=== PATIENT | female | born 1945 | race Caucasian/White ===

== ENCOUNTER → 2016-08-22 | Outpatient (CLI) | payer MEDICARE ==
--- NOTE | 2016-08-22 12:33 | KCIC ---
Bilateral digital screening mammograms with CAD: HISTORY Routine screening. COMPARISON New baseline. Previous films no longer available for comparison. FINDINGS Breast density category A. The skin and nipples show no abnormalities. No abnormal lymph nodes are seen in the axilla. The breast parenchyma is predominately fatty. There are nodular lesions in the 12:30 position anteriorly in the left breast measuring 9.6 millimeters in size and a 2nd lesion in the 2 o'clock B position of the left breast measuring 3.6 millimeters in size. There are nodular lesions in the right breast at the 5 o'clock position anteriorly measuring 3.9 millimeters in size and in the 7 o'clock position anteriorly in the right breast measuring 1.1 centimeter in size. There are no suspicious calcifications. IMPRESSION Nodular densities bilaterally. Recommend further evaluation with ultrasound. This study was interpreted with the benefit of Computerized Aided Detection (CAD). Mammography is not 100% sensitive in detecting breast cancer. Therefore, a self breast exam and a clinical breast exam are very important. A negative mammogram does not negate a clinically suspicious finding and should not result in a delay in biopsying a clinically suspicious abnormality. BI-RADS category 0: Incomplete. Ultrasound followup is recommended. This patient's information has been entered into a reminder system for the patient to be notified with the results of this examination and a target date for her next mammograms. Electronically signed by: Lauren Leon MD (Aug 22, 2016 12:31:38)
== END | disposition home or self-care (01) ==
LOC: KCIC MAMMO 11:09
PROVIDERS: ATTEND Family Medicine
DX: Z12.31 Encounter for screening mammogram for malignant neoplasm of breast (principal)
CPT/HCPCS: 77052; G0202; 77067

== ENCOUNTER → 2016-08-29 | Outpatient (CLI) | payer MEDICARE, OTHER ==
--- NOTE | 2016-08-29 14:12 | RAD ---
Indication possible abnormality seen on screening. Note is made of the screening bilateral mammogram one week earlier and the recommendation for ultrasound of both breasts in the areas of concern in the left breast at approximately the 12:30 and 2:00 positions were imaged. No abnormality is seen. Follow-up mammography of the left breast in 6 months is suggested to document stability. In the right breast at approximately the 5:00 position no abnormality is seen. There is, however, a slightly hypoechoic vascular mass at the 8:00 position of the breast compatible with the mammographic density. It is indeterminate and ultrasound-guided biopsy is recommended. The recommendation for biopsy of the 8:00 lesion in the right breast was to be communicated by the technologist performing the examination to the patient. IMPRESSION: Suspect abnormality in the periareolar position of the right breast at approximately the 8:00 position. Ultrasound-guided biopsy recommended. Follow-up mammography of the left breast in 6 months advised. Right breast BI-RADS 4. Suspect finding. Biopsy recommended. Left breast BI-RADS 3. Probably benign. Six-month follow-up
== END | disposition home or self-care (01) ==
LOC: KCIC US 12:54
PROVIDERS: ATTEND Family Medicine
DX: R92.8 Other abnormal and inconclusive findings on diagnostic imaging of breast (principal)
CPT/HCPCS: 76641

== ENCOUNTER 2018-12-03 15:37 | Inpatient (IN) | payer MEDICARE, OTHER ==
[~2018-12-03] VITALS: Ht 177.8 cm; Wt 102.1 kg
[2018-12-03] MEDS ORDERED: fentaNYL PF VIAL 100 MCG/2 ML VIAL IM ONE (16:00)
--- NOTE | 2018-12-03 16:43 | RAD ---
HIP RIGHT 1 VIEW WITH PELVIS Clinical Indication: PT STATES SHE FELL AND LANDED ON HIP,UNABLE TO MOVE LEG. Comparison: None. Findings: There is acute traumatic right subcapital femoral neck fracture with overriding of fracture fragments and varus deformity. There is no dislocation. On single view the left hip joint is intact. No acute pelvic fracture is identified. There are several phleboliths in the pelvis. There is degenerative endplate spurring in the lower lumbar spine. Crosstable lateral views are nondiagnostic due to lack of penetration. IMPRESSION: Acute traumatic right subcapital femoral neck fracture. Electronically signed by: Mando Del Valle MD (12/03/2018 4:40 PM) [id number]
[2018-12-03 17:57] LABS: BILIRUBIN,URINE NEGATIVE (NEG); CLARITY,URINE CLEAR; COLOR,URINE YELLOW; NITRITE,URINE NEGATIVE (NEG); PH,URINE 7.5; PROTEIN,URINE NEGATIVE (NEG-TRACE); UROBILINOGEN,URINE 0.2 mg/dL (0.2 mg/dL)
[2018-12-03 18:00] LABS: BASO % 0 % (0-3); EOS # 0.1 x10^3/uL (0.0-0.7); EOS % 1 % (0-3); HEMATOCRIT 42.9 % (36.0-47.0); LYMPH # 0.8 x10^3/uL (1.0-4.8); LYMPH % 8 % (24-48); MEAN CORPUSCULAR HEMOGLOBIN 29 pg (25-35); MEAN CORPUSCULAR HGB CONC 33 g/dL (31-37); MEAN CORPUSCULAR VOLUME 88 fL (79-100); MONO # 0.7 x10^3/uL (0.0-1.1); MONO % 7 % (0-9); NEUT # 8.6 x10^3uL (1.8-7.7); NEUT % 83 % (31-73); PLATELET COUNT 248 x10^3/uL (140-400); RED CELL DISTRIBUTION WIDTH 14.5 % (11.5-14.5); WHITE BLOOD COUNT 10.3 x10^3/uL (4.0-11.0)
[2018-12-03 18:06] LABS: BACTERIA,URINE 0 /HPF (0-FEW); RBC,URINE 0 /HPF (0-2); WBC,URINE 0 /HPF (0-4)
[2018-12-03 18:08] LABS: CALCIUM 9.4 mg/dL (8.5-10.1); GFR 54.2
--- NOTE | 2018-12-03 18:09 | PHYS DOC ---
Adult General Chief Complaint Chief Complaint: MECHANICAL FALL HPI HPI Patient is a 73 year old female with history of osteopenia presents to the ED today complaining of mild right lateral hip pain that began after she fell down in her garage steps. She states she fell down 2 steps. Patient denies any loss of consciousness. She states she is unable to bear weight on the right lower extremity. PCP Dr. Maurer (OLINDA SERRATO APRN) Review of Systems Review of Systems Constitutional: Denies fever or chills [] Eyes: Denies change in visual acuity, redness, or eye pain [] HENT: Denies nasal congestion or sore throat [] Respiratory: Denies cough or shortness of breath [] Cardiovascular: No additional information not addressed in HPI [] GI: Denies abdominal pain, nausea, vomiting, bloody stools or diarrhea [] : Denies dysuria or hematuria [] Musculoskeletal: Reports right hip pain Integument: Denies rash or skin lesions [] Neurologic: Denies headache, focal weakness or sensory changes [] All other systems were reviewed and found to be within normal limits, except as documented in this note. (OLINDA SERRATO APRN) Current Medications Current Medications Current Medications Medications (Trade) Dose Ordered Sig/Jaswinder Start Time Stop Time Status Last Admin Dose Admin Fentanyl Citrate (Fentanyl 2ml Vial) 50 mcg 1X ONCE 12/03/18 16:00 12/03/18 16:02 DC 12/03/18 17:28 50 MCG (ABDIRIZAK WISE MD) Allergies Allergies Allergies Coded Allergies Type Severity Reaction Last Updated Verified No Known Drug Allergies 12/03/18 No (ABDIRIZAK WISE MD) Physical Exam Physical Exam Constitutional: Well developed, well nourished, no acute distress, non-toxic appearance. [] HENT: Normocephalic, atraumatic, bilateral external ears normal, oropharynx moist, no oral exudates, nose normal. [] Eyes: PERRLA, EOMI, conjunctiva normal, no discharge. [] Neck: Normal range of motion, no tenderness, supple, no stridor. [] Cardiovascular:Heart rate regular rhythm, no murmur [] Lungs & Thorax: Bilateral breath sounds clear to auscultation [] Abdomen: Bowel sounds normal, soft, no tenderness, no masses, no pulsatile masses. [] Skin: Warm, dry, no erythema, no rash. [] Back: No tenderness, no CVA tenderness. [] Extremities: Right lower extremity appears shortened on the left. Tenderness on palpation of the right lateral hip. Patient unable to tolerate range of motion to the right hip. Full range of motion to the left hip. +2 right pedal pulse. Cap refill less than 2 seconds the right toes. Sensation intact to the right lower extremity. Neurologic: Alert and oriented X 3, normal motor function, normal sensory func tion, no focal deficits noted. [] Psychologic: Affect normal, judgement normal, mood normal. [] (OLINDA SERRATO APRN) Current Patient Data Vital Signs Vital Signs Date Time Temp Pulse Resp B/P (MAP) Pulse Ox O2 Delivery O2 Flow Rate FiO2 12/03/18 18:16 74 95 12/03/18 17:28 20 Room Air 12/03/18 15:37 97.6 146/63 (90) 97.6 (ABDIRIZAK WISE MD) Lab Values Laboratory Tests Test 12/03/18 17:18 12/03/18 17:36 White Blood Count 10.3 x10^3/uL (4.0-11.0) Red Blood Count 4.90 x10^6/uL (3.50-5.40) Hemoglobin 14.0 g/dL (12.0-15.5) Hematocrit 42.9 % (36.0-47.0) Mean Corpuscular Volume 88 fL (79-100) Mean Corpuscular Hemoglobin 29 pg (25-35) Mean Corpuscular Hemoglobin Concent 33 g/dL (31-37) Red Cell Distribution Width 14.5 % (11.5-14.5) Platelet Count 248 x10^3/uL (140-400) Neutrophils (%) (Auto) 83 % (31-73) H Lymphocytes (%) (Auto) 8 % (24-48) L Monocytes (%) (Auto) 7 % (0-9) Eosinophils (%) (Auto) 1 % (0-3) Basophils (%) (Auto) 0 % (0-3) Neutrophils # (Auto) 8.6 x10^3uL (1.8-7.7) H Lymphocytes # (Auto) 0.8 x10^3/uL (1.0-4.8) L Monocytes # (Auto) 0.7 x10^3/uL (0.0-1.1) Eosinophils # (Auto) 0.1 x10^3/uL (0.0-0.7) Basophils # (Auto) 0.0 x10^3/uL (0.0-0.2) Prothrombin Time 12.3 SEC (11.7-14.0) Prothrombin Time INR 0.9 (0.8-1.1) PTT 29 SEC (24-38) Sodium Level 143 mmol/L (136-145) Potassium Level 4.0 mmol/L (3.5-5.1) Chloride Level 105 mmol/L (98-107) Carbon Dioxide Level 28 mmol/L (21-32) Anion Gap 10 (6-14) Blood Urea Nitrogen 20 mg/dL (7-20) Creatinine 1.0 mg/dL (0.6-1.0) Estimated GFR (Cockcroft-Gault) 54.2 BUN/Creatinine Ratio 20 (6-20) Glucose Level 110 mg/dL (70-99) H Calcium Level 9.4 mg/dL (8.5-10.1) Total Bilirubin 0.4 mg/dL (0.2-1.0) Aspartate Amino Transferase (AST) 22 U/L (15-37) Alanine Aminotransferase (ALT) 27 U/L (14-59) Alkaline Phosphatase 76 U/L (46-116) Total Protein 7.2 g/dL (6.4-8.2) Albumin 3.3 g/dL (3.4-5.0) L Albumin/Globulin Ratio 0.8 (1.0-1.7) L Urine Collection Type U cath Urine Color Yellow Urine Clarity Clear Urine pH 7.5 Urine Specific [place] <=1.005 Urine Protein Negative mg/dL (NEG-TRACE) Urine Glucose (UA) Negative mg/dL (NEG) Urine Ketones (Stick) Negative mg/dL (NEG) Urine Blood Negative (NEG) Urine Nitrite Negative (NEG) Urine Bilirubin Negative (NEG) Urine Urobilinogen Dipstick 0.2 mg/dL (0.2 mg/dL) Urine Leukocyte Esterase Negative (NEG) Urine RBC 0 /HPF (0-2) Urine WBC 0 /HPF (0-4) Urine Bacteria 0 /HPF (0-FEW) Laboratory Tests 12/03/18 17:18 Laboratory Tests 12/03/18 17:18 (ABDIRIZAK WISE MD) EKG EKG [] (OLINDA SERRATO APRN) Radiology/Procedures Radiology/Procedures []PROCEDURE: HIP RIGHT 1 VIEW WITH PELVIS HIP RIGHT 1 VIEW WITH PELVIS Clinical Indication: PT STATES SHE FELL AND LANDED ON HIP,UNABLE TO MOVE LEG. Comparison: None. Findings: There is acute traumatic right subcapital femoral neck fracture with overriding of fracture fragments and varus deformity. There is no dislocation. On single view the left hip joint is intact. No acute pelvic fracture is identified. There are several phleboliths in the pelvis. There is degenerative endplate spurring in the lower lumbar spine. Crosstable lateral views are nondiagnostic due to lack of penetration. IMPRESSION: Acute traumatic right subcapital femoral neck fracture. Electronically signed by: Mando Del Valle MD (12/03/2018 4:40 PM) [id number] DICTATED and SIGNED BY: MANDO DEL VALLE MD DATE: 12/03/18 1640 (OLINDA SERRATO APRN) Course & Med Decision Making Course & Med Decision Making Pertinent Labs and Imaging studies reviewed. (See chart for details) This is a 73-year-old female patient presenting to the ED today with right hip pain status post falling today. Right hip x-rays interpreted by radiologist were noted for-acute traumatic right subcapital femoral neck fracture. 17:[address] Browne who will f/u with patient for ortho 18:[address] Monroe who accepted patient for admission. (OLINDA SERRATO APRN) Course & Med Decision Making Staff Physician Addendum: I was working in the ER during the course of this patient's visit. I was available for consultation as needed, but I was not directly involved in the care of this patient. (ABDIRIZAK WISE MD) Dragon Disclaimer Dragon Disclaimer This electronic medical record was generated, in whole or in part, using a voice recognition dictation system. (OLINDA SERRATO APRN) Departure Departure Impression: Primary Impression: Fx femoral neck Additional Impression: Fall from standing Disposition: ADMITTED INPATIENT Condition: STABLE Referrals: YVAN MAURER MD (PCP) Problem Qualifiers Primary Impression: Fx femoral neck Encounter type: initial encounter Fracture type: closed Laterality: right Qualified Codes: S72.001A - Fracture of unspecified part of neck of right femur, initial encounter for closed fracture Additional Impression: Fall from standing Encounter type: initial encounter Qualified Codes: W19.XXXA - Unspecified fall, initial encounter OLINDA SERRATO APRN Dec 03, 2018 18:09 ABDIRIZAK WISE MD Dec 04, 2018 04:17
[2018-12-03 18:10] LABS: PROTHROMBIN TIME PATIENT 12.3 SEC (11.7-14.0)
[2018-12-03 18:14] LABS: ALBUMIN 3.3 g/dL (3.4-5.0); ALBUMIN/GLOBULIN RATIO 0.8 (1.0-1.7); TOTAL BILIRUBIN 0.4 mg/dL (0.2-1.0); TOTAL PROTEIN 7.2 g/dL (6.4-8.2)
[2018-12-03] MEDS ORDERED: ACETAMINOPHEN 325 MG TABLET. PO PRN (18:45)
[2018-12-03] MEDS ORDERED: ONDANSETRON PF 4 MG/2 ML VIAL. IV PRN (18:45)
[2018-12-03] MEDS: MORPHINE SULFATE 4 MG/ML VIAL. IV PRN (19:19)
[2018-12-03] MEDS ORDERED: oxyCODONE/APAP 5/325 1 TAB TABLET PO PRN (20:00)
[2018-12-03 20:20] VITALS: BP 140/57
--- NOTE | 2018-12-03 20:20 | NUR ---
The patient, MELINDA LAINEZ, 73 y/o, F admitted by EZEKIEL MEADOWS MD, was given written information regarding hospital policies, unit procedures and contact persons. Pt. arrived on unit at 2019 with at bedside. Pt. complains of pain 01/20. VSS. Valuables were left with who took them home after pt. got settled in room. Pain medicine given to pt. Call light within reach, bed low. Will continue to monitor.
[2018-12-03] MEDS ORDERED: IV NORMAL SALINE 1000ML BAG 1,000 ML IV ONE (20:45)
--- NOTE | 2018-12-03 20:52 | PDOC1 ---
History and Physical Date of Admission Date of Admission DATE: 12/03/18 TIME: 20:47 Identification/Chief Complaint Chief Complaint right hip pain Source Source: Chart review, Patient History of Present Illness History of Present Illness Ms. Walker is a 73 year old female fell off the step in the garage, fell off 2 steps. Hx of anxiety disorder, better with current meds, following Dr. Parry, with history of osteopenia presents to the She states she fell down 2 steps. Patient denies any loss of consciousness. She states she is unable to bear weight on the right lower extremity. Past Medical History Cardiovascular: No pertinent hx GI: No pertinent hx Psych: Anxiety, Bipolar, Other Musculoskeletal: low back pain Infectious disease: No pertinent hx Endocrine: No pertinent hx Family History Family History: No Significant Social History Smoke: No ALCOHOL: none Drugs: None Current Problem List Problem List Problems Medical Problems: (1) Fall from standing Status: Acute (2) Fx femoral neck Status: Acute Current Medications Current Medications Current Medications Fentanyl Citrate (Fentanyl 2ml Vial) 50 mcg 1X ONCE IM Last administered on 12/03/18at 17:28; Admin Dose 50 MCG; Start 12/03/18 at 16:00; Stop 12/03/18 at 16:02; Status DC Ondansetron HCl (Zofran) 4 mg PRN Q8HRS PRN IV NAUSEA/VOMITING Last administered on 12/03/18at 19:18; Admin Dose 4 MG; Start 12/03/18 at 18:45; Stop 12/04/18 at 18:44 Morphine Sulfate (Morphine Sulfate) 4 mg PRN Q2HR PRN IV PAIN Last administered on 12/03/18at 19:19; Admin Dose 4 MG; Start 12/03/18 at 18:45; Stop 12/04/18 at 18:44 Acetaminophen (Tylenol) 650 mg PRN Q4HRS PRN PO FEVER; Start 12/03/18 at 18:45; Stop 12/04/18 at 18:44 Oxycodone/ Acetaminophen (Percocet 5/325) 1 tab PRN Q4HRS PRN PO PAIN; Start 12/03/18 at 20:00 Cefazolin Sodium/ Dextrose 50 ml @ 100 mls/hr 1X PREOP PRN IV comm; Start 12/03/18 at 20:00 Oxycodone/ Acetaminophen (Percocet 5/325) 2 tab PRN Q4HRS PRN PO PAIN; Start 12/03/18 at 20:30 Ketorolac Tromethamine (Toradol 15mg Vial) 15 mg DAILY PRN IV pain; Start 12/03/18 at 20:30; Stop 12/08/18 at 20:29 Allergies Allergies: Coded Allergies: No Known Drug Allergies (Unverified , 12/03/18) ROS General: No: Chills, Night Sweats, Fatigue, Malaise, Appetite, Other PSYCHOLOGICAL ROS: No: Anxiety, Behavioral Disorder, Concentration difficultie, Decreased libido, Depression, Disorientation, Hallucinations, Hostility, Irritablity, Memory difficulties, Mood Swings, Obsessive thoughts, Physical abuse, Sexual abuse, Sleep disturbances, Suicidal ideation, Other Eyes: No Blurry vision, No Decreased vision, No Double vision, No Dry eyes, No Excessive tearing, No Eye Pain, No Itchy Eyes, No Loss of vision, No Photophobia, No Scotomata, No Uses contacts, No Uses glasses, No Other HEENT: No: Heacaches, Visual Changes, Hearing change, Nasal congestion, Nasal discharge, Oral lesions, Sinus pain, Sore Throat, Epistaxis, Sneezing, Snoring, Tinnitus, Vertigo, Vocal changes, Other Respiratory: No: Cough, Hemoptysis, Orthopnea, Pleuritic Pain, Shortness of breath, SOB with excertion, Sputum Changes, Stridor, Tachypnea, Wheezing, Other Cardiovascular: No Chest Pain, No Palpitations, No Orthopnea, No Paroxysmal Noc. Dyspnea, No Edema, No Lt Headedness, No Other Gastrointestinal: Yes Nausea; No Vomiting, No Abdominal Pain, No Diarrhea, No Constipation, No Melena, No Hematochezia, No Other Genitourinary: No Dysuria, No Frequency, No Incontinence, No Hematuria, No Retention, No Discharge, No Urgency, No Pain, No Flank Pain, No Other, No , No , No , No , No , No , No Musculoskeletal: No Gait Disturbance, No Joint Pain, No Joint Stiffness, No Joint Swelling, No Muscle Pain, No Muscular Weakness, No Pain In:, No Swelling In:, No Other Neurological: No Behavorial Changes, No Bowel/Bladder ControlChng, No Confusion, No Dizziness, No Gait Disturbance, No Headaches, No Impaired Coord/balance, No Memory Loss, No Numbness/Tingling, No Seizures, No Speech Problems, No Tremors, No Visual Changes, No Weakness, No Other Skin: Yes Dry Skin; No Eczema, No Hair Changes, No Lumps, No Mole Changes, No Mottling, No Nail Changes, No Pruritus, No Rash, No Skin Lesion Changes, No Other, No Acne Physical Exam General: Alert, Oriented X3, No acute distress HEENT: Atraumatic, PERRLA, EOMI Lungs: Clear to auscultation, Normal air movement Heart: RRR, no gallops, no murmurs Abdomen: Normal bowel sounds, Soft Rectal Exam: not examined Extremities: No clubbing, No cyanosis, No edema, Normal pulses Skin: No rashes, No breakdown Neuro: Normal speech, Normal tone, Sensation intact Psych/Mental Status: Mental status NL, Mood NL Vitals Vitals Vital Signs Date Time Temp Pulse Resp B/P (MAP) Pulse Ox O2 Delivery O2 Flow Rate FiO2 12/03/18 19:19 20 94 Room Air 12/03/18 15:37 97.6 73 146/63 (90) 97.6 Labs Labs Laboratory Tests Test 12/03/18 17:18 12/03/18 17:36 White Blood Count 10.3 x10^3/uL (4.0-11.0) Red Blood Count 4.90 x10^6/uL (3.50-5.40) Hemoglobin 14.0 g/dL (12.0-15.5) Hematocrit 42.9 % (36.0-47.0) Mean Corpuscular Volume 88 fL (79-100) Mean Corpuscular Hemoglobin 29 pg (25-35) Mean Corpuscular Hemoglobin Concent 33 g/dL (31-37) Red Cell Distribution Width 14.5 % (11.5-14.5) Platelet Count 248 x10^3/uL (140-400) Neutrophils (%) (Auto) 83 % (31-73) Lymphocytes (%) (Auto) 8 % (24-48) Monocytes (%) (Auto) 7 % (0-9) Eosinophils (%) (Auto) 1 % (0-3) Basophils (%) (Auto) 0 % (0-3) Neutrophils # (Auto) 8.6 x10^3uL (1.8-7.7) Lymphocytes # (Auto) 0.8 x10^3/uL (1.0-4.8) Monocytes # (Auto) 0.7 x10^3/uL (0.0-1.1) Eosinophils # (Auto) 0.1 x10^3/uL (0.0-0.7) Basophils # (Auto) 0.0 x10^3/uL (0.0-0.2) Prothrombin Time 12.3 SEC (11.7-14.0) Prothromb Time International Ratio 0.9 (0.8-1.1) Activated Partial Thromboplast Time 29 SEC (24-38) Sodium Level 143 mmol/L (136-145) Potassium Level 4.0 mmol/L (3.5-5.1) Chloride Level 105 mmol/L (98-107) Carbon Dioxide Level 28 mmol/L (21-32) Anion Gap 10 (6-14) Blood Urea Nitrogen 20 mg/dL (7-20) Creatinine 1.0 mg/dL (0.6-1.0) Estimated GFR (Cockcroft-Gault) 54.2 BUN/Creatinine Ratio 20 (6-20) Glucose Level 110 mg/dL (70-99) Calcium Level 9.4 mg/dL (8.5-10.1) Total Bilirubin 0.4 mg/dL (0.2-1.0) Aspartate Amino Transf (AST/SGOT) 22 U/L (15-37) Alanine Aminotransferase (ALT/SGPT) 27 U/L (14-59) Alkaline Phosphatase 76 U/L (46-116) Total Protein 7.2 g/dL (6.4-8.2) Albumin 3.3 g/dL (3.4-5.0) Albumin/Globulin Ratio 0.8 (1.0-1.7) Urine Collection Type U cath Urine Color Yellow Urine Clarity Clear Urine pH 7.5 Urine Specific [place] <=1.005 Urine Protein Negative mg/dL (NEG-TRACE) Urine Glucose (UA) Negative mg/dL (NEG) Urine Ketones (Stick) Negative mg/dL (NEG) Urine Blood Negative (NEG) Urine Nitrite Negative (NEG) Urine Bilirubin Negative (NEG) Urine Urobilinogen Dipstick 0.2 mg/dL (0.2 mg/dL) Urine Leukocyte Esterase Negative (NEG) Urine RBC 0 /HPF (0-2) Urine WBC 0 /HPF (0-4) Urine Bacteria 0 /HPF (0-FEW) Laboratory Tests Test 12/03/18 17:18 12/03/18 17:36 White Blood Count 10.3 x10^3/uL (4.0-11.0) Red Blood Count 4.90 x10^6/uL (3.50-5.40) Hemoglobin 14.0 g/dL (12.0-15.5) Hematocrit 42.9 % (36.0-47.0) Mean Corpuscular Volume 88 fL (79-100) Mean Corpuscular Hemoglobin 29 pg (25-35) Mean Corpuscular Hemoglobin Concent 33 g/dL (31-37) Red Cell Distribution Width 14.5 % (11.5-14.5) Platelet Count 248 x10^3/uL (140-400) Neutrophils (%) (Auto) 83 % (31-73) Lymphocytes (%) (Auto) 8 % (24-48) Monocytes (%) (Auto) 7 % (0-9) Eosinophils (%) (Auto) 1 % (0-3) Basophils (%) (Auto) 0 % (0-3) Neutrophils # (Auto) 8.6 x10^3uL (1.8-7.7) Lymphocytes # (Auto) 0.8 x10^3/uL (1.0-4.8) Monocytes # (Auto) 0.7 x10^3/uL (0.0-1.1) Eosinophils # (Auto) 0.1 x10^3/uL (0.0-0.7) Basophils # (Auto) 0.0 x10^3/uL (0.0-0.2) Prothrombin Time 12.3 SEC (11.7-14.0) Prothromb Time International Ratio 0.9 (0.8-1.1) Activated Partial Thromboplast Time 29 SEC (24-38) Sodium Level 143 mmol/L (136-145) Potassium Level 4.0 mmol/L (3.5-5.1) Chloride Level 105 mmol/L (98-107) Carbon Dioxide Level 28 mmol/L (21-32) Anion Gap 10 (6-14) Blood Urea Nitrogen 20 mg/dL (7-20) Creatinine 1.0 mg/dL (0.6-1.0) Estimated GFR (Cockcroft-Gault) 54.2 BUN/Creatinine Ratio 20 (6-20) Glucose Level 110 mg/dL (70-99) Calcium Level 9.4 mg/dL (8.5-10.1) Total Bilirubin 0.4 mg/dL (0.2-1.0) Aspartate Amino Transf (AST/SGOT) 22 U/L (15-37) Alanine Aminotransferase (ALT/SGPT) 27 U/L (14-59) Alkaline Phosphatase 76 U/L (46-116) Total Protein 7.2 g/dL (6.4-8.2) Albumin 3.3 g/dL (3.4-5.0) Albumin/Globulin Ratio 0.8 (1.0-1.7) Urine Collection Type U cath Urine Color Yellow Urine Clarity Clear Urine pH 7.5 Urine Specific [place] <=1.005 Urine Protein Negative mg/dL (NEG-TRACE) Urine Glucose (UA) Negative mg/dL (NEG) Urine Ketones (Stick) Negative mg/dL (NEG) Urine Blood Negative (NEG) Urine Nitrite Negative (NEG) Urine Bilirubin Negative (NEG) Urine Urobilinogen Dipstick 0.2 mg/dL (0.2 mg/dL) Urine Leukocyte Esterase Negative (NEG) Urine RBC 0 /HPF (0-2) Urine WBC 0 /HPF (0-4) Urine Bacteria 0 /HPF (0-FEW) VTE Prophylaxis Ordered VTE Prophylaxis Devices: No VTE Pharmacological Prophylaxi: Yes Assessment/Plan Assessment/Plan fall femoral neck fracture depression anxiety obesity, BMI 31 EZEKIEL MEADOWS MD Dec 03, 2018 20:52
[2018-12-03] MEDS: KETOROLAC 15 MG/ML VIAL. IV PRN (21:22)
[2018-12-03 23:28] VITALS: BP 139/53
[2018-12-04] VITALS (10 sets, daily range): BP systolic 113–142; BP diastolic 37–59
[2018-12-04] MEDS ORDERED: DONE10TA61 PO (01:07)
[2018-12-04] MEDS ORDERED: MONT10TA9 PO (01:07)
[2018-12-04] MEDS ORDERED: RISP1TAB43 PO (01:07)
[2018-12-04] MEDS ORDERED: CITA40TA12 PO (01:07)
[2018-12-04 04:54] LABS: BASO % 0 % (0-3); EOS # 0.2 x10^3/uL (0.0-0.7); EOS % 3 % (0-3); HEMATOCRIT 38.1 % (36.0-47.0); HEMOGLOBIN 12.8 g/dL (12.0-15.5); LYMPH % 16 % (24-48); MEAN CORPUSCULAR HEMOGLOBIN 30 pg (25-35); MEAN CORPUSCULAR HGB CONC 34 g/dL (31-37); MEAN CORPUSCULAR VOLUME 88 fL (79-100); MONO # 0.6 x10^3/uL (0.0-1.1); MONO % 10 % (0-9); NEUT # 4.7 x10^3uL (1.8-7.7); NEUT % 72 % (31-73); PLATELET COUNT 196 x10^3/uL (140-400); RED BLOOD COUNT 4.34 x10^6/uL (3.50-5.40); RED CELL DISTRIBUTION WIDTH 14.5 % (11.5-14.5); WHITE BLOOD COUNT 6.6 x10^3/uL (4.0-11.0)
[2018-12-04 05:10] LABS: CALCIUM 8.5 mg/dL (8.5-10.1); GFR 54.2; POTASSIUM 4.1 mmol/L (3.5-5.1)
[2018-12-04] MEDS ORDERED: CALC600T4 PO (07:45)
[2018-12-04] MEDS ORDERED: OMEG1CAP27 PO (07:45)
--- NOTE | 2018-12-04 07:57 | RAD ---
CHEST AP ONLY Clinical Indication: FX HIP, PRE OP CXR Comparison: None. Findings: Portable supine frontal view of the chest was obtained. The cardiomediastinal silhouette is normal. Lungs are clear. There is no pneumothorax but the patient supine in this may limit assessment. No pleural effusion is appreciated. Pulmonary hyperinflation appears be present No acute bone abnormality. IMPRESSION: No acute cardiopulmonary process. Pulmonary hyperinflation. Correlate for underlying COPD. Electronically signed by: Valeriano Brennan MD (12/04/2018 7:54 AM) [facility]
[2018-12-04] MEDS: risperiDONE 1 MG TABLET. PO SCH ×2 (09:00→21:46)
[2018-12-04] MEDS: OMEGA-3 FATTY ACIDS/FISH OIL 1,000 MG CAPSULE. PO SCH ×2 (09:00→21:45)
[2018-12-04] MEDS: CITALOPRAM 20 MG TABLET. PO SCH (09:00)
[2018-12-04] MEDS: DONEPEZIL HCL 10 MG TABLET. PO SCH (10:00)
[2018-12-04] MEDS ORDERED: IV RINGERS,LACTATED 1000ML 1,000 ML IV SCH (10:40)
[2018-12-04] MEDS ORDERED: HYDROmorphone 2 MG/ML VIAL IV PRN (10:45)
[2018-12-04] MEDS ORDERED: PROCHLORPERAZINE 10 MG/2 ML VIAL. IV PRN (10:45)
[2018-12-04] MEDS ORDERED: LIDOCAINE 1% PF 2 ML VIAL. ID PRN (10:45)
[2018-12-04] MEDS ORDERED: fentaNYL PF VIAL 100 MCG/2 ML VIAL IV PRN ×3 (10:45→21:15)
[2018-12-04] MEDS ORDERED: MORPHINE SULFATE 2 MG/ML VIAL. IV PRN ×2 (10:45→21:15)
--- NOTE | 2018-12-04 12:24 | PDOC ---
PROGRESS NOTES Chief Complaint Chief Complaint CC: Fall from steps in garage, subcapital femoral neck fx History of Present Illness History of Present Illness Pt seen and examined this morning, at bedside All pts questions answered Scheduled for surgery at ~5pm today No new complaints Vitals Vitals Vital Signs Date Time Temp Pulse Resp B/P (MAP) Pulse Ox O2 Delivery O2 Flow Rate FiO2 12/04/18 11:00 98.6 82 18 120/59 (79) 93 Nasal Cannula 2.0 98.6 Physical Exam General: Alert, Oriented X3, Cooperative, No acute distress Heart: Regular rate, Normal S1, Normal S2, No murmurs Lungs: Clear, Other (No crackles or wheezing, on 2l O2) Abdomen: Normal bowel sounds, Soft, No tenderness Extremities: No clubbing, No cyanosis, No edema, Normal pulses, Other (RLE externally roated) Skin: No rashes, No breakdown Labs LABS Laboratory Tests Test 12/03/18 17:18 12/03/18 17:36 12/04/18 04:25 White Blood Count 10.3 x10^3/uL (4.0-11.0) 6.6 x10^3/uL (4.0-11.0) Red Blood Count 4.90 x10^6/uL (3.50-5.40) 4.34 x10^6/uL (3.50-5.40) Hemoglobin 14.0 g/dL (12.0-15.5) 12.8 g/dL (12.0-15.5) Hematocrit 42.9 % (36.0-47.0) 38.1 % (36.0-47.0) Mean Corpuscular Volume 88 fL (79-100) 88 fL (79-100) Mean Corpuscular Hemoglobin 29 pg (25-35) 30 pg (25-35) Mean Corpuscular Hemoglobin Concent 33 g/dL (31-37) 34 g/dL (31-37) Red Cell Distribution Width 14.5 % (11.5-14.5) 14.5 % (11.5-14.5) Platelet Count 248 x10^3/uL (140-400) 196 x10^3/uL (140-400) Neutrophils (%) (Auto) 83 % (31-73) 72 % (31-73) Lymphocytes (%) (Auto) 8 % (24-48) 16 % (24-48) Monocytes (%) (Auto) 7 % (0-9) 10 % (0-9) Eosinophils (%) (Auto) 1 % (0-3) 3 % (0-3) Basophils (%) (Auto) 0 % (0-3) 0 % (0-3) Neutrophils # (Auto) 8.6 x10^3uL (1.8-7.7) 4.7 x10^3uL (1.8-7.7) Lymphocytes # (Auto) 0.8 x10^3/uL (1.0-4.8) 1.0 x10^3/uL (1.0-4.8) Monocytes # (Auto) 0.7 x10^3/uL (0.0-1.1) 0.6 x10^3/uL (0.0-1.1) Eosinophils # (Auto) 0.1 x10^3/uL (0.0-0.7) 0.2 x10^3/uL (0.0-0.7) Basophils # (Auto) 0.0 x10^3/uL (0.0-0.2) 0.0 x10^3/uL (0.0-0.2) Prothrombin Time 12.3 SEC (11.7-14.0) 13.0 SEC (11.7-14.0) Prothromb Time International Ratio 0.9 (0.8-1.1) 1.0 (0.8-1.1) Activated Partial Thromboplast Time 29 SEC (24-38) Sodium Level 143 mmol/L (136-145) 142 mmol/L (136-145) Potassium Level 4.0 mmol/L (3.5-5.1) 4.1 mmol/L (3.5-5.1) Chloride Level 105 mmol/L (98-107) 107 mmol/L (98-107) Carbon Dioxide Level 28 mmol/L (21-32) 26 mmol/L (21-32) Anion Gap 10 (6-14) 9 (6-14) Blood Urea Nitrogen 20 mg/dL (7-20) 17 mg/dL (7-20) Creatinine 1.0 mg/dL (0.6-1.0) 1.0 mg/dL (0.6-1.0) Estimated GFR (Cockcroft-Gault) 54.2 54.2 BUN/Creatinine Ratio 20 (6-20) Glucose Level 110 mg/dL (70-99) 108 mg/dL (70-99) Calcium Level 9.4 mg/dL (8.5-10.1) 8.5 mg/dL (8.5-10.1) Total Bilirubin 0.4 mg/dL (0.2-1.0) Aspartate Amino Transf (AST/SGOT) 22 U/L (15-37) Alanine Aminotransferase (ALT/SGPT) 27 U/L (14-59) Alkaline Phosphatase 76 U/L (46-116) Total Protein 7.2 g/dL (6.4-8.2) Albumin 3.3 g/dL (3.4-5.0) Albumin/Globulin Ratio 0.8 (1.0-1.7) Urine Collection Type U cath Urine Color Yellow Urine Clarity Clear Urine pH 7.5 Urine Specific [place] <=1.005 Urine Protein Negative mg/dL (NEG-TRACE) Urine Glucose (UA) Negative mg/dL (NEG) Urine Ketones (Stick) Negative mg/dL (NEG) Urine Blood Negative (NEG) Urine Nitrite Negative (NEG) Urine Bilirubin Negative (NEG) Urine Urobilinogen Dipstick 0.2 mg/dL (0.2 mg/dL) Urine Leukocyte Esterase Negative (NEG) Urine RBC 0 /HPF (0-2) Urine WBC 0 /HPF (0-4) Urine Bacteria 0 /HPF (0-FEW) 25-Hydroxy Vitamin D Total 62.8 ng/mL (30-100) Review of Systems Review of Systems Denies F/C Denies CP Denies N/V Assessment and Plan Assessmemt and Plan Assessment: Fall resulting in R subcapital Femoral Neck Fx Chronic bronchitis Anxiety Osteopenia Bipolar Plan: OR today ~5pm Pain control Consider SNU Eval NPO PT/OT ordered Rechk labs in am Home Rx Full code Problems Medical Problems: (1) Fall from standing Status: Acute (2) Fx femoral neck Status: Acute Comment Review of Relevant I have reviewed the following items racquel (where applicable) has been applied. Labs Laboratory Tests Test 12/03/18 17:18 12/03/18 17:36 12/04/18 04:25 White Blood Count 10.3 x10^3/uL (4.0-11.0) 6.6 x10^3/uL (4.0-11.0) Red Blood Count 4.90 x10^6/uL (3.50-5.40) 4.34 x10^6/uL (3.50-5.40) Hemoglobin 14.0 g/dL (12.0-15.5) 12.8 g/dL (12.0-15.5) Hematocrit 42.9 % (36.0-47.0) 38.1 % (36.0-47.0) Mean Corpuscular Volume 88 fL (79-100) 88 fL (79-100) Mean Corpuscular Hemoglobin 29 pg (25-35) 30 pg (25-35) Mean Corpuscular Hemoglobin Concent 33 g/dL (31-37) 34 g/dL (31-37) Red Cell Distribution Width 14.5 % (11.5-14.5) 14.5 % (11.5-14.5) Platelet Count 248 x10^3/uL (140-400) 196 x10^3/uL (140-400) Neutrophils (%) (Auto) 83 % (31-73) 72 % (31-73) Lymphocytes (%) (Auto) 8 % (24-48) 16 % (24-48) Monocytes (%) (Auto) 7 % (0-9) 10 % (0-9) Eosinophils (%) (Auto) 1 % (0-3) 3 % (0-3) Basophils (%) (Auto) 0 % (0-3) 0 % (0-3) Neutrophils # (Auto) 8.6 x10^3uL (1.8-7.7) 4.7 x10^3uL (1.8-7.7) Lymphocytes # (Auto) 0.8 x10^3/uL (1.0-4.8) 1.0 x10^3/uL (1.0-4.8) Monocytes # (Auto) 0.7 x10^3/uL (0.0-1.1) 0.6 x10^3/uL (0.0-1.1) Eosinophils # (Auto) 0.1 x10^3/uL (0.0-0.7) 0.2 x10^3/uL (0.0-0.7) Basophils # (Auto) 0.0 x10^3/uL (0.0-0.2) 0.0 x10^3/uL (0.0-0.2) Prothrombin Time 12.3 SEC (11.7-14.0) 13.0 SEC (11.7-14.0) Prothromb Time International Ratio 0.9 (0.8-1.1) 1.0 (0.8-1.1) Activated Partial Thromboplast Time 29 SEC (24-38) Sodium Level 143 mmol/L (136-145) 142 mmol/L (136-145) Potassium Level 4.0 mmol/L (3.5-5.1) 4.1 mmol/L (3.5-5.1) Chloride Level 105 mmol/L (98-107) 107 mmol/L (98-107) Carbon Dioxide Level 28 mmol/L (21-32) 26 mmol/L (21-32) Anion Gap 10 (6-14) 9 (6-14) Blood Urea Nitrogen 20 mg/dL (7-20) 17 mg/dL (7-20) Creatinine 1.0 mg/dL (0.6-1.0) 1.0 mg/dL (0.6-1.0) Estimated GFR (Cockcroft-Gault) 54.2 54.2 BUN/Creatinine Ratio 20 (6-20) Glucose Level 110 mg/dL (70-99) 108 mg/dL (70-99) Calcium Level 9.4 mg/dL (8.5-10.1) 8.5 mg/dL (8.5-10.1) Total Bilirubin 0.4 mg/dL (0.2-1.0) Aspartate Amino Transf (AST/SGOT) 22 U/L (15-37) Alanine Aminotransferase (ALT/SGPT) 27 U/L (14-59) Alkaline Phosphatase 76 U/L (46-116) Total Protein 7.2 g/dL (6.4-8.2) Albumin 3.3 g/dL (3.4-5.0) Albumin/Globulin Ratio 0.8 (1.0-1.7) Urine Collection Type U cath Urine Color Yellow Urine Clarity Clear Urine pH 7.5 Urine Specific [place] <=1.005 Urine Protein Negative mg/dL (NEG-TRACE) Urine Glucose (UA) Negative mg/dL (NEG) Urine Ketones (Stick) Negative mg/dL (NEG) Urine Blood Negative (NEG) Urine Nitrite Negative (NEG) Urine Bilirubin Negative (NEG) Urine Urobilinogen Dipstick 0.2 mg/dL (0.2 mg/dL) Urine Leukocyte Esterase Negative (NEG) Urine RBC 0 /HPF (0-2) Urine WBC 0 /HPF (0-4) Urine Bacteria 0 /HPF (0-FEW) 25-Hydroxy Vitamin D Total 62.8 ng/mL (30-100) Laboratory Tests Test 12/03/18 17:18 12/03/18 17:36 12/04/18 04:25 White Blood Count 10.3 x10^3/uL (4.0-11.0) 6.6 x10^3/uL (4.0-11.0) Red Blood Count 4.90 x10^6/uL (3.50-5.40) 4.34 x10^6/uL (3.50-5.40) Hemoglobin 14.0 g/dL (12.0-15.5) 12.8 g/dL (12.0-15.5) Hematocrit 42.9 % (36.0-47.0) 38.1 % (36.0-47.0) Mean Corpuscular Volume 88 fL (79-100) 88 fL (79-100) Mean Corpuscular Hemoglobin 29 pg (25-35) 30 pg (25-35) Mean Corpuscular Hemoglobin Concent 33 g/dL (31-37) 34 g/dL (31-37) Red Cell Distribution Width 14.5 % (11.5-14.5) 14.5 % (11.5-14.5) Platelet Count 248 x10^3/uL (140-400) 196 x10^3/uL (140-400) Neutrophils (%) (Auto) 83 % (31-73) 72 % (31-73) Lymphocytes (%) (Auto) 8 % (24-48) 16 % (24-48) Monocytes (%) (Auto) 7 % (0-9) 10 % (0-9) Eosinophils (%) (Auto) 1 % (0-3) 3 % (0-3) Basophils (%) (Auto) 0 % (0-3) 0 % (0-3) Neutrophils # (Auto) 8.6 x10^3uL (1.8-7.7) 4.7 x10^3uL (1.8-7.7) Lymphocytes # (Auto) 0.8 x10^3/uL (1.0-4.8) 1.0 x10^3/uL (1.0-4.8) Monocytes # (Auto) 0.7 x10^3/uL (0.0-1.1) 0.6 x10^3/uL (0.0-1.1) Eosinophils # (Auto) 0.1 x10^3/uL (0.0-0.7) 0.2 x10^3/uL (0.0-0.7) Basophils # (Auto) 0.0 x10^3/uL (0.0-0.2) 0.0 x10^3/uL (0.0-0.2) Prothrombin Time 12.3 SEC (11.7-14.0) 13.0 SEC (11.7-14.0) Prothromb Time International Ratio 0.9 (0.8-1.1) 1.0 (0.8-1.1) Activated Partial Thromboplast Time 29 SEC (24-38) Sodium Level 143 mmol/L (136-145) 142 mmol/L (136-145) Potassium Level 4.0 mmol/L (3.5-5.1) 4.1 mmol/L (3.5-5.1) Chloride Level 105 mmol/L (98-107) 107 mmol/L (98-107) Carbon Dioxide Level 28 mmol/L (21-32) 26 mmol/L (21-32) Anion Gap 10 (6-14) 9 (6-14) Blood Urea Nitrogen 20 mg/dL (7-20) 17 mg/dL (7-20) Creatinine 1.0 mg/dL (0.6-1.0) 1.0 mg/dL (0.6-1.0) Estimated GFR (Cockcroft-Gault) 54.2 54.2 BUN/Creatinine Ratio 20 (6-20) Glucose Level 110 mg/dL (70-99) 108 mg/dL (70-99) Calcium Level 9.4 mg/dL (8.5-10.1) 8.5 mg/dL (8.5-10.1) Total Bilirubin 0.4 mg/dL (0.2-1.0) Aspartate Amino Transf (AST/SGOT) 22 U/L (15-37) Alanine Aminotransferase (ALT/SGPT) 27 U/L (14-59) Alkaline Phosphatase 76 U/L (46-116) Total Protein 7.2 g/dL (6.4-8.2) Albumin 3.3 g/dL (3.4-5.0) Albumin/Globulin Ratio 0.8 (1.0-1.7) Urine Collection Type U cath Urine Color Yellow Urine Clarity Clear Urine pH 7.5 Urine Specific [place] <=1.005 Urine Protein Negative mg/dL (NEG-TRACE) Urine Glucose (UA) Negative mg/dL (NEG) Urine Ketones (Stick) Negative mg/dL (NEG) Urine Blood Negative (NEG) Urine Nitrite Negative (NEG) Urine Bilirubin Negative (NEG) Urine Urobilinogen Dipstick 0.2 mg/dL (0.2 mg/dL) Urine Leukocyte Esterase Negative (NEG) Urine RBC 0 /HPF (0-2) Urine WBC 0 /HPF (0-4) Urine Bacteria 0 /HPF (0-FEW) 25-Hydroxy Vitamin D Total 62.8 ng/mL (30-100) Medications Current Medications Fentanyl Citrate (Fentanyl 2ml Vial) 50 mcg 1X ONCE IM Last administered on 12/03/18at 17:28; Start 12/03/18 at 16:00; Stop 12/03/18 at 16:02; Status DC Ondansetron HCl (Zofran) 4 mg PRN Q8HRS PRN IV NAUSEA/VOMITING Last administered on 12/03/18at 19:18; Start 12/03/18 at 18:45; Stop 12/04/18 at 18:44 Morphine Sulfate (Morphine Sulfate) 4 mg PRN Q2HR PRN IV PAIN Last administered on 12/03/18at 19:19; Start 12/03/18 at 18:45; Stop 12/04/18 at 18:44 Acetaminophen (Tylenol) 650 mg PRN Q4HRS PRN PO FEVER Last administered on 12/04/18at 08:38; Start 12/03/18 at 18:45; Stop 12/04/18 at 18:44 Oxycodone/ Acetaminophen (Percocet 5/325) 1 tab PRN Q4HRS PRN PO PAIN; Start 12/03/18 at 20:00 Cefazolin Sodium/ Dextrose 50 ml @ 100 mls/hr 1X PREOP PRN IV comm; Start 12/03/18 at 20:00 Oxycodone/ Acetaminophen (Percocet 5/325) 2 tab PRN Q4HRS PRN PO PAIN; Start 12/03/18 at 20:30 Ketorolac Tromethamine (Toradol 15mg Vial) 15 mg DAILY PRN IV pain Last administered on 12/03/18at 21:22; Start 12/03/18 at 20:30; Stop 12/08/18 at 20:29 Sodium Chloride 1,000 ml @ 100 mls/hr 1X ONCE IV Last administered on 12/03/18at 21:22; Start 12/03/18 at 20:45; Stop 12/04/18 at 06:44; Status DC Calcium Carbonate/ Glycine (Oscal) 500 mg QHS PO ; Start 12/04/18 at 21:00 Citalopram Hydrobromide (CeleXA) 40 mg DAILY PO ; Start 12/04/18 at 09:00 Donepezil HCl (Aricept) 10 mg DAILY PO ; Start 12/04/18 at 10:00 Montelukast Sodium (Singulair) 10 mg QHS PO ; Start 12/04/18 at 21:00 Fish Oil (Fish Oil) 1,000 mg BID PO ; Start 12/04/18 at 09:00 Risperidone (RisperDAL) 1 mg BID PO ; Start 12/04/18 at 09:00 Fentanyl Citrate (Fentanyl 2ml Vial) 25 mcg PRN Q5MIN PRN IV MILD PAIN; Start 12/04/18 at 10:45; Stop 12/05/18 at 10:44 Fentanyl Citrate (Fentanyl 2ml Vial) 50 mcg PRN Q5MIN PRN IV MODERATE TO SEVERE PAIN; Start 12/04/18 at 10:45; Stop 12/05/18 at 10:44 Morphine Sulfate (Morphine Sulfate) 1 mg PRN Q10MIN PRN IV SEVERE PAIN; Start 12/04/18 at 10:45; Stop 12/05/18 at 10:44 Ringer's Solution 1,000 ml @ 30 mls/hr Q24H IV ; Start 12/04/18 at 10:40; Stop 12/04/18 at 22:39 Lidocaine HCl (Xylocaine-Mpf 1% 2ml Vial) 2 ml PRN 1X PRN ID PRIOR TO IV START; Start 12/04/18 at 10:45; Stop 12/05/18 at 10:44 Hydromorphone HCl (Dilaudid) 0.5 mg PRN Q10MIN PRN IV SEV PAIN, Second choice; Start 12/04/18 at 10:45; Stop 12/05/18 at 10:44 Prochlorperazine Edisylate (Compazine) 5 mg PACU PRN PRN IV NAUSEA, MRX1; Start 12/04/18 at 10:45; Stop 12/05/18 at 10:44 Active Scripts Active Reported Calcium (Calcium Carbonate) 600 Mg Tablet 600 Mg PO HS Fish Oil 1,000 Mg Softgel (Spur-3 Fatty Acids/Fish Oil) 1 Each Capsule 1 Each PO BID Montelukast Sodium Tablet (Montelukast Sodium) 10 Mg Tablet 1 Tab PO DAILY Celexa (Citalopram Hydrobromide) 40 Mg Tablet 1 Tab PO DAILY Risperdal (Risperidone) 1 Mg Tablet 1 Mg PO BID Aricept (Donepezil Hcl) 10 Mg Tablet 1 Tab PO BID Vitals/I & O Vital Sign - Last 24 Hours 12/03/18 12/03/18 12/03/18 12/03/18 15:37 16:16 16:46 17:28 Temp 97.6 97.6 Pulse 73 80 74 Resp 20 20 B/P (MAP) 146/63 (90) Pulse Ox 96 98 95 97 O2 Delivery Room Air Room Air 12/03/18 12/03/18 12/03/18 12/03/18 17:48 18:16 18:46 19:16 Pulse 75 74 84 100 Pulse Ox 95 95 93 93 12/03/18 12/03/18 12/03/18 12/03/18 19:19 19:46 20:20 20:20 Temp 98.3 98.3 Pulse 78 85 Resp 20 18 18 B/P (MAP) 140/57 (84) Pulse Ox 94 93 98 O2 Delivery Room Air Nasal Cannula Nasal Cannula O2 Flow Rate 2.0 2.0 12/03/18 12/03/18 12/04/18 12/04/18 20:20 23:28 03:25 07:00 Temp 98.1 98.6 98.6 98.1 98.6 98.6 Pulse 95 76 80 Resp 18 20 18 B/P (MAP) 139/53 (81) 126/49 (74) 142/58 (86) Pulse Ox 94 94 94 O2 Delivery Nasal Cannula Room Air Nasal Cannula Nasal Cannula O2 Flow Rate 2.0 2.0 2.0 12/04/18 12/04/18 08:00 11:00 Temp 98.6 98.6 Pulse 82 Resp 18 B/P (MAP) 120/59 (79) Pulse Ox 93 O2 Delivery Nasal Cannula Nasal Cannula O2 Flow Rate 2.0 Intake and Output 12/03/18 12/03/18 12/04/18 15:00 23:00 07:00 Intake Total 240 ml Output Total 1925 ml Balance -1685 ml SHAHANA FARLEY III DO Dec 04, 2018 12:24
--- NOTE | 2018-12-04 12:29 | NUR ---
SW following for discharge planning. Discussed with RN, pt is from home with , has surgery scheduled for early this evening. SW will continue to follow.
[2018-12-04] MEDS: MORPHINE SULFATE 4 MG/ML VIAL. IV PRN (13:20)
[2018-12-04] MEDS ORDERED: NEOSTIGMINE METHYLSULFATE 5 MG/5 ML SYRINGE. ONE (16:27)
[2018-12-04] MEDS ORDERED: ROCURONIUM 50 MG/5 ML VIAL. ONE (16:27)
[2018-12-04] MEDS ORDERED: fentaNYL PF VIAL 100 MCG/2 ML VIAL ONE (16:27)
[2018-12-04] MEDS ORDERED: GLYCOPYRROLATE 1 MG/5 ML VIAL. ONE (16:28)
[2018-12-04] MEDS ORDERED: PROPOFOL 20 ML IV ONE ×3 (16:29)
[2018-12-04] MEDS ORDERED: LIDOCAINE 2% PF 5 ML VIAL. ONE (16:29)
[2018-12-04] MEDS ORDERED: ONDANSETRON PF 4 MG/2 ML VIAL. ONE (16:29)
[2018-12-04] MEDS ORDERED: TRANEXAMIC ACID 1,000 MG in IV NORMAL SALINE 50ML 50 ML INJ ONE ×2 (18:00→19:00)
[2018-12-04] MEDS ORDERED: MORPHINE SULFATE 5 MG, KETOROLAC 30MG VIAL 30 MG, ROPIVacaine 0.5% PF 60 ML, EPINEPHrin... INT ART ONE ×5 (18:00)
[2018-12-04] MEDS ORDERED: PHENYLEPHRINE in 0.9% NACL PF 1 MG/10 ML SYRINGE. IV ONE (18:23)
[2018-12-04] MEDS ORDERED: TOBRAMYCIN POWDER 1.2 GM VIAL. ONE (18:44)
[2018-12-04] MEDS ORDERED: VANCOMYCIN 1 GM VIAL. ONE (18:44)
[2018-12-04] MEDS ORDERED: SEVOFLURANE 61 TO 120 MINUTES. IH ONE (18:44)
--- NOTE | 2018-12-04 19:42 | NUR ---
Client left for surgery approximately at 1615.
[2018-12-04] MEDS ORDERED: VANCOMYCIN 1 GM VIAL. TP ONE (19:52)
[2018-12-04] MEDS ORDERED: TOBRAMYCIN POWDER 1.2 GM VIAL. TP ONE (19:52)
--- NOTE | 2018-12-04 20:22 | PDOC2 ---
CONSULT Date of Consult Date of Consult DATE: 12/04/18 TIME: 20:22 Reason for Consult Reason for Consult: Right hip fracture Identification/Chief Complaint Chief Complaint Right hip pain after a fall Source Source: Chart review, Patient History of Present Illness Reason for Visit: This 73-year-old woman fell at home. She said she was coming down stairs into the garage and first missed a step and then fell onto her hip. She said felt like her hip exploded. She had severe pain and inability to ambulate after that. X-rays in the emergency room show displaced femoral neck fracture. She was admitted, on bedrest, and with the pain medication and DVT prophylaxis. Past Medical History Cardiovascular: No pertinent hx GI: No pertinent hx Psych: Anxiety, Bipolar, Other Musculoskeletal: low back pain Infectious disease: No pertinent hx Endocrine: No pertinent hx Family History Family History: No Significant Social History Social History She was here with her . She is retired. She has mild dementia. She said she is giving up driving and about to sell her car. She does not normally use a cane or a walker. She has been working out sometimes 4 times a week with a education trainer No ALCOHOL: none Drugs: None Current Problem List Problem List Problems Medical Problems: (1) Fall from standing Status: Acute (2) Fx femoral neck Status: Acute Current Medications Current Medications Current Medications Fentanyl Citrate (Fentanyl 2ml Vial) 50 mcg 1X ONCE IM Last administered on 12/03/18at 17:28; Start 12/03/18 at 16:00; Stop 12/03/18 at 16:02; Status DC Ondansetron HCl (Zofran) 4 mg PRN Q8HRS PRN IV NAUSEA/VOMITING Last administered on 12/03/18at 19:18; Start 12/03/18 at 18:45; Stop 12/04/18 at 18:44; Status DC Morphine Sulfate (Morphine Sulfate) 4 mg PRN Q2HR PRN IV PAIN Last administered on 12/04/18at 13:20; Start 12/03/18 at 18:45; Stop 12/04/18 at 18:44; Status DC Acetaminophen (Tylenol) 650 mg PRN Q4HRS PRN PO FEVER Last administered on 12/04/18at 08:38; Start 12/03/18 at 18:45; Stop 12/04/18 at 18:44; Status DC Oxycodone/ Acetaminophen (Percocet 5/325) 1 tab PRN Q4HRS PRN PO PAIN; Start 12/03/18 at 20:00 Cefazolin Sodium/ Dextrose 50 ml @ 100 mls/hr 1X PREOP PRN IV comm; Start 12/03/18 at 20:00 Oxycodone/ Acetaminophen (Percocet 5/325) 2 tab PRN Q4HRS PRN PO PAIN; Start 12/03/18 at 20:30 Ketorolac Tromethamine (Toradol 15mg Vial) 15 mg DAILY PRN IV pain Last administered on 12/03/18at 21:22; Start 12/03/18 at 20:30; Stop 12/08/18 at 20:29 Sodium Chloride 1,000 ml @ 100 mls/hr 1X ONCE IV Last administered on 12/03/18at 21:22; Start 12/03/18 at 20:45; Stop 12/04/18 at 06:44; Status DC Calcium Carbonate/ Glycine (Oscal) 500 mg QHS PO ; Start 12/04/18 at 21:00 Citalopram Hydrobromide (CeleXA) 40 mg DAILY PO ; Start 12/04/18 at 09:00 Donepezil HCl (Aricept) 10 mg DAILY PO ; Start 12/04/18 at 10:00 Montelukast Sodium (Singulair) 10 mg QHS PO ; Start 12/04/18 at 21:00 Fish Oil (Fish Oil) 1,000 mg BID PO ; Start 12/04/18 at 09:00 Risperidone (RisperDAL) 1 mg BID PO ; Start 12/04/18 at 09:00 Fentanyl Citrate (Fentanyl 2ml Vial) 25 mcg PRN Q5MIN PRN IV MILD PAIN; Start 12/04/18 at 10:45; Stop 12/05/18 at 10:44 Fentanyl Citrate (Fentanyl 2ml Vial) 50 mcg PRN Q5MIN PRN IV MODERATE TO SEVERE PAIN; Start 12/04/18 at 10:45; Stop 12/05/18 at 10:44 Morphine Sulfate (Morphine Sulfate) 1 mg PRN Q10MIN PRN IV SEVERE PAIN; Start 12/04/18 at 10:45; Stop 12/05/18 at 10:44 Ringer's Solution 1,000 ml @ 30 mls/hr Q24H IV ; Start 12/04/18 at 10:40; Stop 12/04/18 at 22:39 Lidocaine HCl (Xylocaine-Mpf 1% 2ml Vial) 2 ml PRN 1X PRN ID PRIOR TO IV START; Start 12/04/18 at 10:45; Stop 12/05/18 at 10:44 Hydromorphone HCl (Dilaudid) 0.5 mg PRN Q10MIN PRN IV SEV PAIN, Second choice; Start 12/04/18 at 10:45; Stop 12/05/18 at 10:44 Prochlorperazine Edisylate (Compazine) 5 mg PACU PRN PRN IV NAUSEA, MRX1; Star t 12/04/18 at 10:45; Stop 12/05/18 at 10:44 Rocuronium [place] (Zemuron) 50 mg STK-MED ONCE .ROUTE ; Start 12/04/18 at 16:27; Stop 12/04/18 at 16:28; Status DC Fentanyl Citrate (Fentanyl 2ml Vial) 100 mcg STK-MED ONCE .ROUTE ; Start 12/04/18 at 16:27; Stop 12/04/18 at 16:28; Status DC Neostigmine Methylsulfate (Neostigmine Methylsulfate) 5 mg STK-MED ONCE .ROUTE ; Start 12/04/18 at 16:27; Stop 12/04/18 at 16:28; Status DC Glycopyrrolate (Robinul) 1 mg STK-MED ONCE .ROUTE ; Start 12/04/18 at 16:28; Stop 12/04/18 at 16:29; Status DC Propofol 20 ml @ As Directed STK-MED ONCE IV ; Start 12/04/18 at 16:29; Stop 12/04/18 at 16:30; Status DC Lidocaine HCl (Lidocaine Pf 2% Vial) 5 ml STK-MED ONCE .ROUTE ; Start 12/04/18 at 16:29; Stop 12/04/18 at 16:30; Status DC Propofol 20 ml @ As Directed STK-MED ONCE IV ; Start 12/04/18 at 16:29; Stop 12/04/18 at 16:30; Status DC Propofol 20 ml @ As Directed STK-MED ONCE IV ; Start 12/04/18 at 16:29; Stop 12/04/18 at 16:30; Status DC Ondansetron HCl (Zofran) 4 mg STK-MED ONCE .ROUTE ; Start 12/04/18 at 16:29; Stop 12/04/18 at 16:30; Status DC Cefazolin Sodium/ Dextrose 50 ml @ 100 mls/hr 1X ONCE IV Last administered on 12/04/18at 18:15; Start 12/04/18 at 17:00; Stop 12/04/18 at 17:29; Status DC Morphine Sulfate 5 mg/Ketorolac Tromethamine 30 mg/Ropivacaine 60 ml/Epinephrine HCl 0.5 mg/Sodium Chloride 100 ml @ 100 mls/hr 1X ONCE INT ART ; Start 12/04/18 at 18:00; Stop 12/04/18 at 18:59; Status DC Tranexamic Acid 1000 mg/Sodium Chloride 60 ml @ 60 mls/hr 1X PERIOP ONCE INJ Last administered on 12/04/18at 18:30; Start 12/04/18 at 18:00; Stop 12/04/18 at 18:59; Status DC Tranexamic Acid 1000 mg/Sodium Chloride 60 ml @ 60 mls/hr 1X PERIOP ONCE INJ Last administered on 12/04/18at 20:00; Start 12/04/18 at 19:00; Stop 12/04/18 at 19:59; Status DC Phenylephrine HCl (PHENYLEPHRINE in 0.9% NACL PF) 1 mg STK-MED ONCE IV ; Start 12/04/18 at 18:23; Stop 12/04/18 at 18:24; Status DC Sevoflurane (Ultane) 60 ml STK-MED ONCE IH ; Start 12/04/18 at 18:44; Stop 12/04/18 at 18:45; Status DC Vancomycin HCl (Vancomycin) 1 gm STK-MED ONCE .ROUTE ; Start 12/04/18 at 18:44; Stop 12/04/18 at 19:45; Status DC Tobramycin Sulfate (Tobramycin Powder) 1.2 gm STK-MED ONCE .ROUTE ; Start 12/04/18 at 18:44; Stop 12/04/18 at 19:45; Status DC Tobramycin Sulfate (Tobramycin Powder) 1.2 gm STK-MED ONCE TP Last administered on 12/04/18at 19:52; Start 12/04/18 at 19:52; Stop 12/04/18 at 19:56; Status DC Vancomycin HCl (Vancomycin) 1 gm STK-MED ONCE TP Last administered on 12/04/18at 19:52; Start 12/04/18 at 19:52; Stop 12/04/18 at 19:56; Status DC Active Scripts Active Reported Calcium (Calcium Carbonate) 600 Mg Tablet 600 Mg PO HS Fish Oil 1,000 Mg Softgel ([place]-3 Fatty Acids/Fish Oil) 1 Each Capsule 1 Each PO BID Montelukast Sodium Tablet (Montelukast Sodium) 10 Mg Tablet 1 Tab PO DAILY Celexa (Citalopram Hydrobromide) 40 Mg Tablet 1 Tab PO DAILY Risperdal (Risperidone) 1 Mg Tablet 1 Mg PO BID Aricept (Donepezil Hcl) 10 Mg Tablet 1 Tab PO BID Allergies Allergies: Coded Allergies: No Known Drug Allergies (Unverified , 12/03/18) ROS PSYCHOLOGICAL ROS: YES: Anxiety, Memory difficulties HEENT: No: Heacaches, Visual Changes Respiratory: YES: Cough, Other (occasional cough, recurrent bronchitis episodes) Cardiovascular: No Chest Pain Gastrointestinal: No Nausea, No Vomiting, No Diarrhea Genitourinary: No Dysuria, No Hematuria Musculoskeletal: Yes Joint Pain, Yes Pain In: (right hip after the fall) Neurological: Yes Behavorial Changes (some recent loss of memory, mild dementia) Physical Exam Physical Exam Pleasant woman in no acute distress. accent possibly Azeri or [place]ien. General: Alert, Cooperative HEENT: Atraumatic Lungs: Normal air movement Heart: Regular rate Abdomen: Soft Extremities: No edema, Normal pulses, Other (the right hip is shortened and rotated. The skin is intact over the fracture. There is pain with any attempted motion. Tender to palpation at the right hip.) Skin: No breakdown, No significant lesion Neuro: Normal speech, Sensation intact Psych/Mental Status: Mood NL Vitals VITALS Vital Signs Date Time Temp Pulse Resp B/P (MAP) Pulse Ox O2 Delivery O2 Flow Rate FiO2 12/04/18 16:40 98.6 79 18 166/74 95 Nasal Cannula 2.0 98.6 Labs Labs Laboratory Tests Test 12/03/18 17:18 12/03/18 17:36 12/04/18 04:25 White Blood Count 10.3 x10^3/uL (4.0-11.0) 6.6 x10^3/uL (4.0-11.0) Red Blood Count 4.90 x10^6/uL (3.50-5.40) 4.34 x10^6/uL (3.50-5.40) Hemoglobin 14.0 g/dL (12.0-15.5) 12.8 g/dL (12.0-15.5) Hematocrit 42.9 % (36.0-47.0) 38.1 % (36.0-47.0) Mean Corpuscular Volume 88 fL (79-100) 88 fL (79-100) Mean Corpuscular Hemoglobin 29 pg (25-35) 30 pg (25-35) Mean Corpuscular Hemoglobin Concent 33 g/dL (31-37) 34 g/dL (31-37) Red Cell Distribution Width 14.5 % (11.5-14.5) 14.5 % (11.5-14.5) Platelet Count 248 x10^3/uL (140-400) 196 x10^3/uL (140-400) Neutrophils (%) (Auto) 83 % (31-73) 72 % (31-73) Lymphocytes (%) (Auto) 8 % (24-48) 16 % (24-48) Monocytes (%) (Auto) 7 % (0-9) 10 % (0-9) Eosinophils (%) (Auto) 1 % (0-3) 3 % (0-3) Basophils (%) (Auto) 0 % (0-3) 0 % (0-3) Neutrophils # (Auto) 8.6 x10^3uL (1.8-7.7) 4.7 x10^3uL (1.8-7.7) Lymphocytes # (Auto) 0.8 x10^3/uL (1.0-4.8) 1.0 x10^3/uL (1.0-4.8) Monocytes # (Auto) 0.7 x10^3/uL (0.0-1.1) 0.6 x10^3/uL (0.0-1.1) Eosinophils # (Auto) 0.1 x10^3/uL (0.0-0.7) 0.2 x10^3/uL (0.0-0.7) Basophils # (Auto) 0.0 x10^3/uL (0.0-0.2) 0.0 x10^3/uL (0.0-0.2) Prothrombin Time 12.3 SEC (11.7-14.0) 13.0 SEC (11.7-14.0) Prothromb Time International Ratio 0.9 (0.8-1.1) 1.0 (0.8-1.1) Activated Partial Thromboplast Time 29 SEC (24-38) Sodium Level 143 mmol/L (136-145) 142 mmol/L (136-145) Potassium Level 4.0 mmol/L (3.5-5.1) 4.1 mmol/L (3.5-5.1) Chloride Level 105 mmol/L (98-107) 107 mmol/L (98-107) Carbon Dioxide Level 28 mmol/L (21-32) 26 mmol/L (21-32) Anion Gap 10 (6-14) 9 (6-14) Blood Urea Nitrogen 20 mg/dL (7-20) 17 mg/dL (7-20) Creatinine 1.0 mg/dL (0.6-1.0) 1.0 mg/dL (0.6-1.0) Estimated GFR (Cockcroft-Gault) 54.2 54.2 BUN/Creatinine Ratio 20 (6-20) Glucose Level 110 mg/dL (70-99) 108 mg/dL (70-99) Calcium Level 9.4 mg/dL (8.5-10.1) 8.5 mg/dL (8.5-10.1) Total Bilirubin 0.4 mg/dL (0.2-1.0) Aspartate Amino Transf (AST/SGOT) 22 U/L (15-37) Alanine Aminotransferase (ALT/SGPT) 27 U/L (14-59) Alkaline Phosphatase 76 U/L (46-116) Total Protein 7.2 g/dL (6.4-8.2) Albumin 3.3 g/dL (3.4-5.0) Albumin/Globulin Ratio 0.8 (1.0-1.7) Urine Collection Type U cath Urine Color Yellow Urine Clarity Clear Urine pH 7.5 Urine Specific [place] <=1.005 Urine Protein Negative mg/dL (NEG-TRACE) Urine Glucose (UA) Negative mg/dL (NEG) Urine Ketones (Stick) Negative mg/dL (NEG) Urine Blood Negative (NEG) Urine Nitrite Negative (NEG) Urine Bilirubin Negative (NEG) Urine Urobilinogen Dipstick 0.2 mg/dL (0.2 mg/dL) Urine Leukocyte Esterase Negative (NEG) Urine RBC 0 /HPF (0-2) Urine WBC 0 /HPF (0-4) Urine Bacteria 0 /HPF (0-FEW) 25-Hydroxy Vitamin D Total 62.8 ng/mL (30-100) Laboratory Tests Test 12/04/18 04:25 White Blood Count 6.6 x10^3/uL (4.0-11.0) Red Blood Count 4.34 x10^6/uL (3.50-5.40) Hemoglobin 12.8 g/dL (12.0-15.5) Hematocrit 38.1 % (36.0-47.0) Mean Corpuscular Volume 88 fL (79-100) Mean Corpuscular Hemoglobin 30 pg (25-35) Mean Corpuscular Hemoglobin Concent 34 g/dL (31-37) Red Cell Distribution Width 14.5 % (11.5-14.5) Platelet Count 196 x10^3/uL (140-400) Neutrophils (%) (Auto) 72 % (31-73) Lymphocytes (%) (Auto) 16 % (24-48) Monocytes (%) (Auto) 10 % (0-9) Eosinophils (%) (Auto) 3 % (0-3) Basophils (%) (Auto) 0 % (0-3) Neutrophils # (Auto) 4.7 x10^3uL (1.8-7.7) Lymphocytes # (Auto) 1.0 x10^3/uL (1.0-4.8) Monocytes # (Auto) 0.6 x10^3/uL (0.0-1.1) Eosinophils # (Auto) 0.2 x10^3/uL (0.0-0.7) Basophils # (Auto) 0.0 x10^3/uL (0.0-0.2) Prothrombin Time 13.0 SEC (11.7-14.0) Prothromb Time International Ratio 1.0 (0.8-1.1) Sodium Level 142 mmol/L (136-145) Potassium Level 4.1 mmol/L (3.5-5.1) Chloride Level 107 mmol/L (98-107) Carbon Dioxide Level 26 mmol/L (21-32) Anion Gap 9 (6-14) Blood Urea Nitrogen 17 mg/dL (7-20) Creatinine 1.0 mg/dL (0.6-1.0) Estimated GFR (Cockcroft-Gault) 54.2 Glucose Level 108 mg/dL (70-99) Calcium Level 8.5 mg/dL (8.5-10.1) 25-Hydroxy Vitamin D Total 62.8 ng/mL (30-100) Images Images Reports reviewed, images independently reviewed. Displaced femoral neck fracture, varus malalignment, and overriding. Assessment/Plan Assessment/Plan Displaced right hip femoral neck fracture in a 73-year-old with mild dementia, and who ambulates normally. I recommended hemiarthroplasty, specifically cemented bipolar arthroplasty. The patient and I and the patient's family discussed the risks benefits and alternatives of a cemented bipolar arth roplasty. The advantages are early range of motion and better pain control. Generally the patient can be up fully weightbearing as tolerated on the first postoperative day. The risks include risks of dislocation, infection, blood clots, leg length discrepancy, neurovascular injury particularly to the sciatic nerve causing a foot drop, and other potential surgical or anesthetic comp lications. The alternatives of surgery are bedrest for treatment which is generally not well tolerated due to the high risks of bedsores, pneumonia, blood clots, and frequently with nonoperative treatment for hip fractures. They stated understanding of the risks benefits and alternatives and desired to proceed with surgery. The surgical site was marked by me. CHRISTY LONG MD Dec 04, 2018 20:22
--- NOTE | 2018-12-04 20:36 | PDOC4 ---
Operative Note Operative Note Date of Procedure: December 04, 2018 Pre-Op Diagnosis: Displaced midcervical fracture of right femur, initial encounter for closed fracture S72.031A Post-Op Diagnosis: same Procedure: right hip open treatment of femoral fracture, proximal end, neck, prosthetic replacement, CPT 72863 Anesthesia Type: General Surgeon: Christy Browne MD Fulfillment Mail Clerk: PING Wallace EBL: 400 mL Specimens Obtained: right femoral head Complications: None Drains: none Implant Company: [employer] Implants: Size 11 Conquest fracture femoral component cobalt chrome, 13 mm distal post centralizer, Tandem cobalt chrome shell/ultrahigh molecular weight polyethylene liner bipolar 28 mm inner diameter, 55 mm outer diameter. [place] chrome 28 mm outer diameter +0 mm 12/14 taper cobalt chrome femoral head Findings: obesity (approximately 5 inches depth of subcutaneous adipose tissue dissection before fascia encountered.) More bleeding than usual, but partially due to extended incision. Obesity required additional dissection, and alternative instrumentation such as extended Charnley retractors, and additional instrument sets were opened. The Charnley retractor frequently disengaged and had to be repositioned due to the adipose tissue overwhelming the usual mechanism. INDICATION FOR PROCEDURE: The patient is a 73 year old woman who fell, fracturing the right hip. X-rays show an unstable displaced femoral neck fracture. The patient and I and the patients family discussed the risks, benefits and alternatives of treatment. One alternative for treatment is bedrest, which I generally do not recommend. I recommended a cemented bipolar arthroplasty, and I talked to her about the potential risks of this, including bleeding, infection, blood clots, dislocation, leg length discrepancy or other potential surgical or anesthetic complications. All of her questions were answered about surgery and they desired to proceed. A written consent was obtained. PROCEDURE IN DETAIL: The patient was identified in the preoperative holding area. The correct right hip was marked by me. The patient was taken to the operating room where a general anesthetic was used. Preoperative antibiotics were given intravenously. The patient was positioned laterally on a resendiz-bag with the bony prominences well padded. A time-out procedure was performed. All of the operating team wore the personal ventilated exhaust scrub suits. The hip and limb were thoroughly prepared with sterile solution, and then then draping was performed, using a sterile [place] hip drape and an impervious stockinette such that the skin was entirely covered. An additional [place] drape was required due to the size of the thigh. A posterior approach to the hip was used. Sharp dissection was used. Bovie electrocautery was used for hemostasis. Gelpi retractors were placed. Sharp dissection was used and the fascia was exposed. The fascia was divided sharply and then a Charnley retractor was placed. My dietitian assistant internally rotated the hip and I divided the short external rotators off the posterior aspect of the hip. The Charnley retractor was placed in a manner to protect the sciatic nerve with the short external rotators. The capsule was divided in an inverted T fashion. The fracture was identified. The neck was recut with a saw. The neck fragment was removed. The head was removed with a corkscrew and measured using templates. The acetabulum was cleared of bony fragments. Traction sutures were placed in the capsule. The lateral aspect of the cut femoral neck was exposed. A box osteotome was used to enlarge the entry, at the lateral cortex of the femoral neck. A manual T-handle canal finder was used first, followed by sequential power reaming based on x-ray sizing and intramedullary bone chatter. Sequential broaching was then performed and then the calcar reamer was used to ream the neck on the final broach. Different head and neck lengths were trialed until satisfactory length and stability were achieved in full extension, hip flexion of 90 degrees, and internal rotation. Trial components were removed, and the canal was irrigated thoroughly with the Gatekeeper System InterPulse device, and then dried carefully. A cement restrictor was placed. The final implants were opened based on the trial sizing. Two packages of radiopaque bone cement were mixed with 1 gm of powdered Vancomycin, and 1.2 gm Tobramycin and then were vacuum-mixed with the monomer, and placed into a cement gun. The cement was now pressurized down the canal against the cement restrictor. The final stem was now implanted into the soft cement, and after excess cement was removed, the stem was held in an anteverted and valgus position until the cement hardened. The final head assembly was tamped onto the Sánchez taper. The hip was reduced a final time with my dietitian assistant applying longitudinal traction and rotation, while I guided the head into the acetabulum. A final check was made of limb length and stability in multiple positions. Copious i rrigation was used. A periarticular injection was used. No drains were used. The capsule was closed with #2 Ethibond suture. The fascia was closed with #2 Vicryl suture. Next, #2-0 PDS suture was used in the subcutaneous tissues by my dietitian assistant, and chago were placed in the skin by my dietitian assistant. Choose an item.The beanbag was deflated, and the patient was rolled supine on the operating table. An abduction pillow was used. The patient tolerated the procedure well. Needle and sponge counts were c orrect. There were no apparent complications. CHRISTY BROWNE MD Dec 04, 2018 20:36
[2018-12-04] MEDS ORDERED: oxyCODONE IR 5 MG TABLET PO PRN (21:15)
[2018-12-04] MEDS ORDERED: DEXTROSE 50% 25 GM / 50ML DISP.SYRIN. IV PRN (21:15)
[2018-12-04] MEDS ORDERED: oxyCODONE/APAP 5/325 1 TAB TABLET PO PRN (21:15)
[2018-12-04] MEDS ORDERED: ONDANSETRON PF 4 MG/2 ML VIAL. IV PRN (21:15)
[2018-12-04] MEDS ORDERED: CALCIUM CARBONATE 500 MG TAB.CHEW PO PRN (21:15)
[2018-12-04] MEDS ORDERED: HYDROcodone/APAP 7.5/325MG 1 TAB TABLET PO PRN ×2 (21:15)
[2018-12-04] MEDS ORDERED: POLYETHYLENE GLYCOL 3350 17 GM PACKET. PO PRN (21:15)
[2018-12-04] MEDS ORDERED: MORPHINE SULFATE 4 MG/ML VIAL. IV PRN (21:15)
--- NOTE | 2018-12-04 21:35 | NUR ---
Pt. arrived on unit from PACU. VSS. No complaints of pain. Night time medications were given. Call light within reach, bed low. Son and at bedside. Will continue to monitor.
[2018-12-04] MEDS: IV 1/2 NORMAL SALINE 1,000 ML IV SCH (21:45)
[2018-12-04] MEDS: CALCIUM CARBONATE 500 MG TABLET PO SCH (21:45)
[2018-12-04] MEDS: MONTELUKAST SODIUM 10 MG TABLET. PO SCH (21:46)
[2018-12-04] MEDS: KETOROLAC 15 MG/ML VIAL. IV PRN (21:46)
[2018-12-05] VITALS (8 sets, daily range): BP systolic 91–129; BP diastolic 39–60
[2018-12-05 04:22] LABS: HEMATOCRIT 33.4 % (36.0-47.0); HEMOGLOBIN 11.1 g/dL (12.0-15.5)
[2018-12-05] MEDS ORDERED: MAGNESIUM HYDROXIDE 2,400 MG/30 ML ORAL.SUSP. PO PRN (06:00)
[2018-12-05] MEDS: FERROUS SULFATE 325 MG TABLET. PO SCH ×3 (08:00→17:00)
[2018-12-05] MEDS: OMEGA-3 FATTY ACIDS/FISH OIL 1,000 MG CAPSULE. PO SCH ×3 (08:03→20:55)
[2018-12-05] MEDS: CHOLECALCIFEROL (VITAMIN D3) 1,000 UNIT TABLET PO SCH (08:04)
[2018-12-05] MEDS: DONEPEZIL HCL 10 MG TABLET. PO SCH (08:04)
[2018-12-05] MEDS: CITALOPRAM 20 MG TABLET. PO SCH (08:04)
[2018-12-05] MEDS: MULTIVITAMIN with MINERAL TABLET. PO SCH (08:04)
[2018-12-05] MEDS: SENNOSIDES/DOCUSATE 8.6/50MG TABLET. PO SCH (08:04)
[2018-12-05] MEDS: ASPIRIN ENTERIC COATED 325 MG TABLET.DR. PO SCH ×2 (08:04→20:54)
[2018-12-05] MEDS: risperiDONE 1 MG TABLET. PO SCH ×2 (08:04→20:55)
[2018-12-05] MEDS: CELECOXIB 100 MG CAPSULE. PO SCH (08:30)
--- NOTE | 2018-12-05 09:36 | RAD ---
HIP RIGHT 2V WITH PELVIS Clinical Indication: post op Comparison: AP pelvis and right hip, prior day. Findings: There is right hip arthroplasty. Alignment is anatomic. There is no acute fracture. The left hip joint is intact. There is scattered subcutaneous air. There are lateral skin chago. IMPRESSION: Post right hip arthroplasty, no complication radiographically. Electronically signed by: Mando Del Valle MD (12/05/2018 9:33 AM) [id number]
--- NOTE | 2018-12-05 09:45 | PDOC ---
PROGRESS NOTES Chief Complaint Chief Complaint CC: Fall from steps in garage, subcapital femoral neck fx History of Present Illness History of Present Illness Pt seen and examined this morning, POD #1 Some mild pain/soreness, feels this is well controlled No new complaints Vitals Vitals Vital Signs Date Time Temp Pulse Resp B/P (MAP) Pulse Ox O2 Delivery O2 Flow Rate FiO2 12/05/18 08:05 Room Air 12/05/18 07:00 98.9 87 16 121/54 (76) 94 2.0 98.9 Physical Exam General: Alert, Oriented X3, Cooperative, No acute distress Heart: Regular rate, Normal S1, Normal S2, No murmurs Lungs: Clear, Other (No crackles or wheezing, on 2l O2) Abdomen: Normal bowel sounds, Soft, No tenderness, No hepatosplenomegaly Extremities: No edema, Normal pulses, Other (Tender to palpation at the right hip, ) Skin: No rashes, No breakdown, No significant lesion Labs LABS Laboratory Tests Test 12/04/18 10:22 12/04/18 20:55 12/05/18 03:35 Nasal Screen MRSA (PCR) Negative (Negative) Glucose (Fingerstick) 132 mg/dL (70-99) Hemoglobin 11.1 g/dL (12.0-15.5) Hematocrit 33.4 % (36.0-47.0) Mean Corpuscular Hemoglobin Concent 33 g/dL (31-37) Review of Systems Review of Systems Denies F/C Denies N/V Assessment and Plan Assessmemt and Plan Assessment: Fall resulting in R subcapital Femoral Neck Fx - POD #1 from R bipolar hip arthroplasty, doing well Chronic bronchitis Anxiety Osteopenia Bipolar Plan: SNU Eval Full liquid diet, tolerating - ADAT Pain control Wound care to incision, on zosyn Bowel regimen Vit D 1000u PT/OT ordered Recheck labs in am Home Rx Full code Problems Medical Problems: (1) Fall from standing Status: Acute (2) Fx femoral neck Status: Acute Comment Review of Relevant I have reviewed the following items racquel (where applicable) has been applied. Labs Laboratory Tests Test 12/03/18 17:18 12/03/18 17:36 12/04/18 04:25 12/04/18 10:22 White Blood Count 10.3 x10^3/uL (4.0-11.0) 6.6 x10^3/uL (4.0-11.0) Red Blood Count 4.90 x10^6/uL (3.50-5.40) 4.34 x10^6/uL (3.50-5.40) Hemoglobin 14.0 g/dL (12.0-15.5) 12.8 g/dL (12.0-15.5) Hematocrit 42.9 % (36.0-47.0) 38.1 % (36.0-47.0) Mean Corpuscular Volume 88 fL (79-100) 88 fL (79-100) Mean Corpuscular Hemoglobin 29 pg (25-35) 30 pg (25-35) Mean Corpuscular Hemoglobin Concent 33 g/dL (31-37) 34 g/dL (31-37) Red Cell Distribution Width 14.5 % (11.5-14.5) 14.5 % (11.5-14.5) Platelet Count 248 x10^3/uL (140-400) 196 x10^3/uL (140-400) Neutrophils (%) (Auto) 83 % (31-73) 72 % (31-73) Lymphocytes (%) (Auto) 8 % (24-48) 16 % (24-48) Monocytes (%) (Auto) 7 % (0-9) 10 % (0-9) Eosinophils (%) (Auto) 1 % (0-3) 3 % (0-3) Basophils (%) (Auto) 0 % (0-3) 0 % (0-3) Neutrophils # (Auto) 8.6 x10^3uL (1.8-7.7) 4.7 x10^3uL (1.8-7.7) Lymphocytes # (Auto) 0.8 x10^3/uL (1.0-4.8) 1.0 x10^3/uL (1.0-4.8) Monocytes # (Auto) 0.7 x10^3/uL (0.0-1.1) 0.6 x10^3/uL (0.0-1.1) Eosinophils # (Auto) 0.1 x10^3/uL (0.0-0.7) 0.2 x10^3/uL (0.0-0.7) Basophils # (Auto) 0.0 x10^3/uL (0.0-0.2) 0.0 x10^3/uL (0.0-0.2) Prothrombin Time 12.3 SEC (11.7-14.0) 13.0 SEC (11.7-14.0) Prothromb Time International Ratio 0.9 (0.8-1.1) 1.0 (0.8-1.1) Activated Partial Thromboplast Time 29 SEC (24-38) Sodium Level 143 mmol/L (136-145) 142 mmol/L (136-145) Potassium Level 4.0 mmol/L (3.5-5.1) 4.1 mmol/L (3.5-5.1) Chloride Level 105 mmol/L (98-107) 107 mmol/L (98-107) Carbon Dioxide Level 28 mmol/L (21-32) 26 mmol/L (21-32) Anion Gap 10 (6-14) 9 (6-14) Blood Urea Nitrogen 20 mg/dL (7-20) 17 mg/dL (7-20) Creatinine 1.0 mg/dL (0.6-1.0) 1.0 mg/dL (0.6-1.0) Estimated GFR (Cockcroft-Gault) 54.2 54.2 BUN/Creatinine Ratio 20 (6-20) Glucose Level 110 mg/dL (70-99) 108 mg/dL (70-99) Calcium Level 9.4 mg/dL (8.5-10.1) 8.5 mg/dL (8.5-10.1) Total Bilirubin 0.4 mg/dL (0.2-1.0) Aspartate Amino Transf (AST/SGOT) 22 U/L (15-37) Alanine Aminotransferase (ALT/SGPT) 27 U/L (14-59) Alkaline Phosphatase 76 U/L (46-116) Total Protein 7.2 g/dL (6.4-8.2) Albumin 3.3 g/dL (3.4-5.0) Albumin/Globulin Ratio 0.8 (1.0-1.7) Urine Collection Type U cath Urine Color Yellow Urine Clarity Clear Urine pH 7.5 Urine Specific [place] <=1.005 Urine Protein Negative mg/dL (NEG-TRACE) Urine Glucose (UA) Negative mg/dL (NEG) Urine Ketones (Stick) Negative mg/dL (NEG) Urine Blood Negative (NEG) Urine Nitrite Negative (NEG) Urine Bilirubin Negative (NEG) Urine Urobilinogen Dipstick 0.2 mg/dL (0.2 mg/dL) Urine Leukocyte Esterase Negative (NEG) Urine RBC 0 /HPF (0-2) Urine WBC 0 /HPF (0-4) Urine Bacteria 0 /HPF (0-FEW) 25-Hydroxy Vitamin D Total 62.8 ng/mL (30-100) Nasal Screen MRSA (PCR) Negative (Negative) Test 12/04/18 20:55 12/05/18 03:35 Glucose (Fingerstick) 132 mg/dL (70-99) Hemoglobin 11.1 g/dL (12.0-15.5) Hematocrit 33.4 % (36.0-47.0) Mean Corpuscular Hemoglobin Concent 33 g/dL (31-37) Laboratory Tests Test 12/04/18 10:22 12/04/18 20:55 12/05/18 03:35 Nasal Screen MRSA (PCR) Negative (Negative) Glucose (Fingerstick) 132 mg/dL (70-99) Hemoglobin 11.1 g/dL (12.0-15.5) Hematocrit 33.4 % (36.0-47.0) Mean Corpuscular Hemoglobin Concent 33 g/dL (31-37) Medications Current Medications Fentanyl Citrate (Fentanyl 2ml Vial) 50 mcg 1X ONCE IM Last administered on 12/03/18at 17:28; Start 12/03/18 at 16:00; Stop 12/03/18 at 16:02; Status DC Ondansetron HCl (Zofran) 4 mg PRN Q8HRS PRN IV NAUSEA/VOMITING Last adminis tered on 12/03/18at 19:18; Start 12/03/18 at 18:45; Stop 12/04/18 at 18:44; Status DC Morphine Sulfate (Morphine Sulfate) 4 mg PRN Q2HR PRN IV PAIN Last administered on 12/04/18at 13:20; Start 12/03/18 at 18:45; Stop 12/04/18 at 18:44; Status DC Acetaminophen (Tylenol) 650 mg PRN Q4HRS PRN PO FEVER Last administered on 12/04/18 08:38; Start 12/03/18 at 18:45; Stop 12/04/18 at 18:44; Status DC Oxycodone/ Acetaminophen (Percocet 5/325) 1 tab PRN Q4HRS PRN PO PAIN; Start 12/03/18 at 20:00 Cefazolin Sodium/ Dextrose 50 ml @ 100 mls/hr 1X PREOP PRN IV comm; Start 12/03/18 at 20:00 Oxycodone/ Acetaminophen (Percocet 5/325) 2 tab PRN Q4HRS PRN PO PAIN; Start 12/03/18 at 20:30 Ketorolac Tromethamine (Toradol 15mg Vial) 15 mg DAILY PRN IV pain Last administered on 12/04/18 21:46; Start 12/03/18 at 20:30; Stop 12/08/18 at 20:29 Sodium Chloride 1,000 ml @ 100 mls/hr 1X ONCE IV Last administered on 12/03/18 21:22; Start 12/03/18 at 20:45; Stop 12/04/18 at 06:44; Status DC Calcium Carbonate/ Glycine (Oscal) 500 mg QHS PO Last administered on 12/04/18 21:45; Start 12/04/18 at 21:00 Citalopram Hydrobromide (CeleXA) 40 mg DAILY PO Last administered on 12/05/18 08:04; Start 12/04/18 at 09:00 Donepezil HCl (Aricept) 10 mg DAILY PO Last administered on 12/05/18 08:04; Start 12/04/18 at 10:00 Montelukast Sodium (Singulair) 10 mg QHS PO Last administered on 12/04/18 21:46; Start 12/04/18 at 21:00 Fish Oil (Fish Oil) 1,000 mg BID PO Last administered on 12/04/18 21:45; Start 12/04/18 at 09:00 Risperidone (RisperDAL) 1 mg BID PO Last administered on 12/05/18 08:04; Start 12/04/18 at 09:00 Fentanyl Citrate (Fentanyl 2ml Vial) 25 mcg PRN Q5MIN PRN IV MILD PAIN; Start 12/04/18 at 10:45; Stop 12/05/18 at 10:44 Fentanyl Citrate (Fentanyl 2ml Vial) 50 mcg PRN Q5MIN PRN IV MODERATE TO SEVERE PAIN; Start 12/04/18 at 10:45; Stop 12/05/18 at 10:44 Morphine Sulfate (Morphine Sulfate) 1 mg PRN Q10MIN PRN IV SEVERE PAIN; Start 12/04/18 at 10:45; Stop 12/05/18 at 10:44 Ringer's Solution 1,000 ml @ 30 mls/hr Q24H IV ; Start 12/04/18 at 10:40; Stop 12/04/18 at 22:39; Status DC Lidocaine HCl (Xylocaine-Mpf 1% 2ml Vial) 2 ml PRN 1X PRN ID PRIOR TO IV START; Start 12/04/18 at 10:45; Stop 12/05/18 at 10:44 Hydromorphone HCl (Dilaudid) 0.5 mg PRN Q10MIN PRN IV SEV PAIN, Second choice; Start 12/04/18 at 10:45; Stop 12/05/18 at 10:44 Prochlorperazine Edisylate (Compazine) 5 mg PACU PRN PRN IV NAUSEA, MRX1; Start 12/04/18 at 10:45; Stop 12/05/18 at 10:44 Rocuronium Innis (Zemuron) 50 mg STK-MED ONCE .ROUTE ; Start 12/04/18 at 16:27; Stop 12/04/18 at 16:28; Status DC Fentanyl Citrate (Fentanyl 2ml Vial) 100 mcg STK-MED ONCE .ROUTE ; Start 12/04/18 at 16:27; Stop 12/04/18 at 16:28; Status DC Neostigmine Methylsulfate (Neostigmine Methylsulfate) 5 mg STK-MED ONCE .ROUTE ; Start 12/04/18 at 16:27; Stop 12/04/18 at 16:28; Status DC Glycopyrrolate (Robinul) 1 mg STK-MED ONCE .ROUTE ; Start 12/04/18 at 16:28; Stop 12/04/18 at 16:29; Status DC Propofol 20 ml @ As Directed STK-MED ONCE IV ; Start 12/04/18 at 16:29; Stop 12/04/18 at 16:30; Status DC Lidocaine HCl (Lidocaine Pf 2% Vial) 5 ml STK-MED ONCE .ROUTE ; Start 12/04/18 at 16:29; Stop 12/04/18 at 16:30; Status DC Propofol 20 ml @ As Directed STK-MED ONCE IV ; Start 12/04/18 at 16:29; Stop 12/04/18 at 16:30; Status DC Propofol 20 ml @ As Directed STK-MED ONCE IV ; Start 12/04/18 at 16:29; Stop 12/04/18 at 16:30; Status DC Ondansetron HCl (Zofran) 4 mg STK-MED ONCE .ROUTE ; Start 12/04/18 at 16:29; Stop 12/04/18 at 16:30; Status DC Cefazolin Sodium/ Dextrose 50 ml @ 100 mls/hr 1X ONCE IV Last administered on 12/04/18at 18:15; Start 12/04/18 at 17:00; Stop 12/04/18 at 17:29; Status DC Morphine Sulfate 5 mg/Ketorolac Tromethamine 30 mg/Ropivacaine 60 ml/Epinephrine HCl 0.5 mg/Sodium Chloride 100 ml @ 100 mls/hr 1X ONCE INT ART ; Start 12/04/18 at 18:00; Stop 12/04/18 at 18:59; Status DC Tranexamic Acid 1000 mg/Sodium Chloride 60 ml @ 60 mls/hr 1X PERIOP ONCE INJ Last administered on 12/04/18at 18:30; Start 12/04/18 at 18:00; Stop 12/04/18 at 18:59; Status DC Tranexamic Acid 1000 mg/Sodium Chloride 60 ml @ 60 mls/hr 1X PERIOP ONCE INJ Last administered on 12/04/18at 20:00; Start 12/04/18 at 19:00; Stop 12/04/18 at 19:59; Status DC Phenylephrine HCl (PHENYLEPHRINE in 0.9% NACL PF) 1 mg STK-MED ONCE IV ; Start 12/04/18 at 18:23; Stop 12/04/18 at 18:24; Status DC Sevoflurane (Ultane) 60 ml STK-MED ONCE IH ; Start 12/04/18 at 18:44; Stop 12/04/18 at 18:45; Status DC Vancomycin HCl (Vancomycin) 1 gm STK-MED ONCE .ROUTE ; Start 12/04/18 at 18:44; Stop 12/04/18 at 19:45; Status DC Tobramycin Sulfate (Tobramycin Powder) 1.2 gm STK-MED ONCE .ROUTE ; Start 12/04/18 at 18:44; Stop 12/04/18 at 19:45; Status DC Tobramycin Sulfate (Tobramycin Powder) 1.2 gm STK-MED ONCE TP Last administered on 12/04/18at 19:52; Start 12/04/18 at 19:52; Stop 12/04/18 at 19:56; Status DC Vancomycin HCl (Vancomycin) 1 gm STK-MED ONCE TP Last administered on 12/04/18at 19:52; Start 12/04/18 at 19:52; Stop 12/04/18 at 19:56; Status DC Oxycodone HCl (Roxicodone) 5 mg PRN Q3HRS PRN PO MODERATE PAIN; Start 12/04/18 at 21:15 Morphine Sulfate (Morphine Sulfate) 2 mg PRN Q1HR PRN IV SEVERE PAIN; Start 12/04/18 at 21:15 Fentanyl Citrate (Fentanyl 2ml Vial) 25 mcg PRN Q1HR PRN IV SEVERE PAIN; Start 12/04/18 at 21:15 Multivitamins (Thera M Plus) 1 tab DAILY PO Last administered on 12/05/18 08:04; Start 12/05/18 at 09:00 Senna/Docusate Sodium (Senna Plus) 1 tab DAILY PO Last administered on 12/05/18at 08:04; Start 12/05/18 at 09:00 Polyethylene Glycol (miraLAX PACKET) 17 gm PRN DAILY PRN PO CONSTIPATION 1ST C HOICE; Start 12/04/18 at 21:15 Ferrous Sulfate (Feosol) 325 mg BIDWMEALS PO ; Start 12/05/18 at 08:00 Celecoxib (CeleBREX) 200 mg DAILY PO Last administered on 12/05/18at 08:30; Start 12/05/18 at 09:00 Vitamin D (Vitamin D3) 1,000 unit DAILY PO Last administered on 12/05/18at 08:04; Start 12/05/18 at 09:00 Sodium Chloride 1,000 ml @ 75 mls/hr [id number] IV Last administered on 12/04/18at 21:45; Start 12/04/18 at 21:01 Ondansetron HCl (Zofran) 4 mg PRN Q4HRS PRN IV NAUSEA/VOMITING 1ST CHOICE; Start 12/04/18 at 21:15 Calcium Carbonate/ Glycine (Tums) 500 mg PRN QID PRN PO INDIGESTION; Start 12/04/18 at 21:15 Magnesium Hydroxide (Milk Of Magnesia) 2,400 mg 1X PRN PRN PO CONSTIPATION; Start 12/05/18 at 06:00; Stop 12/06/18 at 05:59 Bisacodyl (Dulcolax Supp) 10 mg 1X PRN PRN CA CONSTIPATION; Start 12/05/18 at 16:00; Stop 12/06/18 at 15:59 Acetaminophen/ Hydrocodone Bitart (Lortab 7.5/325) 1 tab PRN Q4HRS PRN PO MODERATE PAIN; Start 12/04/18 at 21:15 Morphine Sulfate (Morphine Sulfate) 4 mg PRN Q2HR PRN IV SEVERE PAIN; Start 12/04/18 at 21:15 Acetaminophen/ Hydrocodone Bitart (Lortab 7.5/325) 2 tab PRN Q4HRS PRN PO SEVERE PAIN Last administered on 12/05/18at 08:05; Start 12/04/18 at 21:15 Dextrose (Dextrose 50%-Water Syringe) 12.5 gm PRN Q15MIN PRN IV SEE COMMENTS; Start 12/04/18 at 21:15 Cefazolin Sodium/ Dextrose 50 ml @ 100 mls/hr Q6H IV Last administered on 12/05/18at 06:01; Start 12/05/18 at 00:00; Stop 12/05/18 at 12:29 Aspirin (Ecotrin) 325 mg BID PO Last administered on 12/05/18at 08:04; Start 12/05/18 at 09:00 Oxycodone/ Acetaminophen (Percocet 5/325) 1 tab PRN Q4HRS PRN PO MODERATE PAIN; Start 12/04/18 at 21:15 Active Scripts Active Reported Calcium (Calcium Carbonate) 600 Mg Tablet 600 Mg PO HS Fish Oil 1,000 Mg Softgel ([place]-3 Fatty Acids/Fish Oil) 1 Each Capsule 1 Each PO BID Montelukast Sodium Tablet (Montelukast Sodium) 10 Mg Tablet 1 Tab PO DAILY Celexa (Citalopram Hydrobromide) 40 Mg Tablet 1 Tab PO DAILY Risperdal (Risperidone) 1 Mg Tablet 1 Mg PO BID Aricept (Donepezil Hcl) 10 Mg Tablet 1 Tab PO BID Vitals/I & O Vital Sign - Last 24 Hours 12/04/18 12/04/18 12/04/18 12/04/18 11:00 13:20 15:00 16:40 Temp 98.6 98.0 98.6 98.6 98.0 98.6 Pulse 82 89 79 Resp 18 18 18 B/P (MAP) 120/59 (79) 133/58 (83) 166/74 Pulse Ox 93 90 95 O2 Delivery Nasal Cannula Room Air Nasal Cannula Nasal Cannula O2 Flow Rate 2.0 2.0 2.0 12/04/18 12/04/18 12/04/18 12/04/18 20:41 20:41 20:55 21:10 Temp 99.4 99.4 99.4 99.4 99.4 99.4 Pulse 91 87 82 Resp 17 17 14 B/P (MAP) 98/47 99/47 100/50 Pulse Ox 97 97 95 O2 Delivery Simple Mask Mask Simple Mask Nasal Cannula O2 Flow Rate 15 15 15 2 12/04/18 12/04/18 12/04/18 12/04/18 21:25 21:25 21:30 21:45 Temp 98.3 97.7 98.3 97.7 Pulse 83 87 83 Resp 15 18 B/P (MAP) 98/53 130/48 (75) 126/48 (74) Pulse Ox 95 97 97 O2 Delivery Mask Nasal Cannula Nasal Cannula Nasal Cannula O2 Flow Rate 2 2 2.0 2.0 12/04/18 12/04/18 12/04/18 12/04/18 22:00 22:30 22:30 23:00 Pulse 78 86 77 80 B/P (MAP) 134/37 (69) 125/43 (70) 133/41 (71) 126/41 (69) Pulse Ox 96 97 96 92 O2 Delivery Nasal Cannula Nasal Cannula Nasal Cannula Nasal Cannula O2 Flow Rate 2.0 2.0 2.0 2.0 12/04/18 12/05/18 12/05/18 12/05/18 23:30 00:30 01:30 03:00 Temp 97.7 97.7 Pulse 73 69 69 74 B/P (MAP) 113/39 (63) 113/40 (64) 114/43 (66) 101/43 (62) Pulse Ox 94 94 94 94 O2 Delivery Nasal Cannula Nasal Cannula Nasal Cannula Nasal Cannula O2 Flow Rate 2.0 2.0 2.0 2.0 12/05/18 12/05/18 07:00 08:05 Temp 98.9 98.9 Pulse 87 Resp 16 B/P (MAP) 121/54 (76) Pulse Ox 94 O2 Delivery Nasal Cannula Room Air O2 Flow Rate 2.0 Intake and Output 12/04/18 12/04/18 12/05/18 15:00 23:00 07:00 Intake Total 950 ml 2060.39 ml Output Total 2550 ml 250 ml Balance -1600 ml 1810.39 ml SHAHANA FARLEY III DO Dec 05, 2018 09:45
[2018-12-05] MEDS: IV 1/2 NORMAL SALINE 1,000 ML IV SCH (10:21)
--- NOTE | 2018-12-05 12:39 | NUR ---
SW following for discharge planning. Discussed with RN, pt is from home with (Seven). SW awaiting PT/OT recommendations, likely to be SNU. SW met with pt and pt's to discuss potential SNU recommendation, pt is not sure if she needs SNU and doesn't really want to go, however pt's possibly wants her to go. SW advised we could discuss more after PT/OT recommendation. SW will continue to follow.
--- NOTE | 2018-12-05 14:14 | NUR ---
MARYCRUZ following. Discussed with pt's , Seven - PT/OT recommending SNU. Seven reported he had talked more with pt about this and she is willing to go. They would like referral sent to [facility] or [facility] as they are the most convenient from their home. MARYCRUZ phoned and faxed referral to [facility], pt needs one more midnight. RN notified.
[2018-12-05] MEDS ORDERED: BISACODYL 10 MG SUPP.RECT. PR PRN (16:00)
[2018-12-05] MEDS: CALCIUM CARBONATE 500 MG TABLET PO SCH (20:54)
[2018-12-05] MEDS: MONTELUKAST SODIUM 10 MG TABLET. PO SCH (20:55)
[2018-12-06] MEDS: IV 1/2 NORMAL SALINE 1,000 ML IV SCH (00:45)
[2018-12-06 03:08] VITALS: BP 122/46
[2018-12-06 05:35] LABS: BASO % 0 % (0-3); EOS # 0.7 x10^3/uL (0.0-0.7); EOS % 6 % (0-3); HEMATOCRIT 32.3 % (36.0-47.0); HEMOGLOBIN 10.7 g/dL (12.0-15.5); LYMPH # 1.5 x10^3/uL (1.0-4.8); LYMPH % 13 % (24-48); MEAN CORPUSCULAR HEMOGLOBIN 29 pg (25-35); MEAN CORPUSCULAR HGB CONC 33 g/dL (31-37); MEAN CORPUSCULAR VOLUME 88 fL (79-100); MONO # 1.8 x10^3/uL (0.0-1.1); MONO % 15 % (0-9); NEUT # 7.8 x10^3uL (1.8-7.7); NEUT % 66 % (31-73); PLATELET COUNT 143 x10^3/uL (140-400); RED BLOOD COUNT 3.69 x10^6/uL (3.50-5.40); RED CELL DISTRIBUTION WIDTH 14.7 % (11.5-14.5); WHITE BLOOD COUNT 11.8 x10^3/uL (4.0-11.0)
[2018-12-06 05:47] LABS: CALCIUM 8.7 mg/dL (8.5-10.1); CREATININE 0.9 mg/dL (0.6-1.0); GFR 61.2; POTASSIUM 4.5 mmol/L (3.5-5.1)
[2018-12-06] MEDS: oxyCODONE/APAP 5/325 1 TAB TABLET PO PRN ×2 (06:17→12:12)
[2018-12-06 07:00] VITALS: BP 121/51
[2018-12-06 11:00] VITALS: BP 130/43
[2018-12-06] MEDS: risperiDONE 1 MG TABLET. PO SCH (11:12)
[2018-12-06] MEDS: CITALOPRAM 20 MG TABLET. PO SCH (11:12)
[2018-12-06] MEDS: CELECOXIB 100 MG CAPSULE. PO SCH (11:13)
[2018-12-06] MEDS: SENNOSIDES/DOCUSATE 8.6/50MG TABLET. PO SCH (11:14)
[2018-12-06] MEDS: FERROUS SULFATE 325 MG TABLET. PO SCH (11:14)
[2018-12-06] MEDS: ASPIRIN ENTERIC COATED 325 MG TABLET.DR. PO SCH (11:14)
--- NOTE | 2018-12-06 11:14 | SNU/HH DC ---
DISCHARGE ORDERS DISCHARGE INFORMATION: FINAL DIAGNOSIS Problems Medical Problems: (1) Fall from standing Status: Acute (2) Fx femoral neck Status: Acute CONDITION ON DISCHARGE: Stable CODE STATUS: Code Status: Full RESIDENTIAL: SNF STAY <30 DAYS: Yes HOSPICE: HOSPICE: No HOSPICE EVAL & TREAT: No LTAC: ADMIT TO LTAC: No POST DISCHARGE ORDERS: ACTIVITY ORDERS: Bedrest today DIET AFTER DISCHARGE: Cardiac TREATMENT/EQUIPMENT ORDERS: Physical Therapy For: Evalulation/Treatment Occupational Therapy For: Evaluation/Treatment DISCHARGE MEDICATIONS: Home Meds Reported Medications Calcium Carbonate (CALCIUM) 600 Mg Tablet, 600 MG PO HS for supplement, TAB 12/04/18 [place]-3 Fatty Acids/Fish Oil (FISH OIL 1,000 MG SOFTGEL) 1 Each Capsule, 1 EACH PO BID for supplement, CAP 12/04/18 Montelukast Sodium (MONTELUKAST SODIUM TABLET) 10 Mg Tablet, 1 TAB PO DAILY for copd, #30 TAB 5 Refills 12/04/18 Citalopram Hydrobromide (CELEXA) 40 Mg Tablet, 1 TAB PO DAILY for anxiety, #30 TAB 1 Refill 12/04/18 Risperidone (RISPERDAL) 1 Mg Tablet, 1 MG PO BID for MOOD STABILIZER, TAB 12/04/18 Donepezil Hcl (ARICEPT) 10 Mg Tablet, 1 TAB PO BID for dementia, #30 TAB 5 Refills 12/04/18 SHAHANA FARLEY III DO Dec 06, 2018 11:14
[2018-12-06] MEDS: MULTIVITAMIN with MINERAL TABLET. PO SCH (11:15)
[2018-12-06] MEDS: DONEPEZIL HCL 10 MG TABLET. PO SCH (11:15)
[2018-12-06] MEDS: CHOLECALCIFEROL (VITAMIN D3) 1,000 UNIT TABLET PO SCH (11:16)
[2018-12-06] MEDS: OMEGA-3 FATTY ACIDS/FISH OIL 1,000 MG CAPSULE. PO SCH (11:16)
--- NOTE | 2018-12-06 11:30 | NUR ---
SW following. Pt will discharge to [facility] at 1230. RN notified.
--- NOTE | 2018-12-06 11:42 | PDOC ---
PROGRESS NOTES Chief Complaint Chief Complaint CC: Fall from steps in garage, subcapital femoral neck fx History of Present Illness History of Present Illness Pt seen and examined this morning, POD #2 Some mild pain/soreness, feels this is well controlled. She states she is very stiff and hasn't been up to walk yet. No new complaints Vitals Vitals Vital Signs Date Time Temp Pulse Resp B/P (MAP) Pulse Ox O2 Delivery O2 Flow Rate FiO2 12/06/18 07:20 94 Room Air 2.0 12/06/18 07:00 98.5 78 18 121/51 (74) 98.5 Physical Exam General: Alert, Oriented X3, Cooperative, No acute distress Heart: Regular rate, Normal S1, Normal S2, No murmurs Lungs: Clear (No wheezes, rales, or rhonchi) Abdomen: Soft, No tenderness, No masses Extremities: No edema, Normal pulses, Other (Tender to palpation at the right hip, ) Skin: No rashes, No breakdown, No significant lesion Labs LABS Laboratory Tests Test 12/06/18 04:40 12/06/18 04:46 Sodium Level 137 mmol/L (136-145) Potassium Level 4.5 mmol/L (3.5-5.1) Chloride Level 106 mmol/L (98-107) Carbon Dioxide Level 27 mmol/L (21-32) Anion Gap 4 (6-14) Blood Urea Nitrogen 15 mg/dL (7-20) Creatinine 0.9 mg/dL (0.6-1.0) Estimated GFR (Cockcroft-Gault) 61.2 Glucose Level 119 mg/dL (70-99) Calcium Level 8.7 mg/dL (8.5-10.1) White Blood Count 11.8 x10^3/uL (4.0-11.0) Red Blood Count 3.69 x10^6/uL (3.50-5.40) Hemoglobin 10.7 g/dL (12.0-15.5) Hematocrit 32.3 % (36.0-47.0) Mean Corpuscular Volume 88 fL (79-100) Mean Corpuscular Hemoglobin 29 pg (25-35) Mean Corpuscular Hemoglobin Concent 33 g/dL (31-37) Red Cell Distribution Width 14.7 % (11.5-14.5) Platelet Count 143 x10^3/uL (140-400) Neutrophils (%) (Auto) 66 % (31-73) Lymphocytes (%) (Auto) 13 % (24-48) Monocytes (%) (Auto) 15 % (0-9) Eosinophils (%) (Auto) 6 % (0-3) Basophils (%) (Auto) 0 % (0-3) Neutrophils # (Auto) 7.8 x10^3uL (1.8-7.7) Lymphocytes # (Auto) 1.5 x10^3/uL (1.0-4.8) Monocytes # (Auto) 1.8 x10^3/uL (0.0-1.1) Eosinophils # (Auto) 0.7 x10^3/uL (0.0-0.7) Basophils # (Auto) 0.0 x10^3/uL (0.0-0.2) Review of Systems Review of Systems Patient denies fevers, chills, N/V, CP, SOB Assessment and Plan Assessmemt and Plan Problems Medical Problems: (1) Fall from standing Status: Acute (2) Fx femoral neck Status: Acute Assessment: Fall resulting in R subcapital Femoral Neck Fx - POD #2 from R bipolar hip arthroplasty, doing well Chronic bronchitis Anxiety Osteopenia Bipolar Plan: SNU Eval- DC to [facility] today Script for Lortab Regular diet Pain control Wound care to incision Bowel regimen Vit D 1000u PT/OT ordered F/u labs Home Rx Full code Comment Review of Relevant I have reviewed the following items racquel (where applicable) has been applied. Labs Laboratory Tests Test 12/04/18 20:55 12/05/18 03:35 12/06/18 04:40 12/06/18 04:46 Glucose (Fingerstick) 132 mg/dL (70-99) Hemoglobin 11.1 g/dL (12.0-15.5) 10.7 g/dL (12.0-15.5) Hematocrit 33.4 % (36.0-47.0) 32.3 % (36.0-47.0) Mean Corpuscular Hemoglobin Concent 33 g/dL (31-37) 33 g/dL (31-37) Sodium Level 137 mmol/L (136-145) Potassium Level 4.5 mmol/L (3.5-5.1) Chloride Level 106 mmol/L (98-107) Carbon Dioxide Level 27 mmol/L (21-32) Anion Gap 4 (6-14) Blood Urea Nitrogen 15 mg/dL (7-20) Creatinine 0.9 mg/dL (0.6-1.0) Estimated GFR (Cockcroft-Gault) 61.2 Glucose Level 119 mg/dL (70-99) Calcium Level 8.7 mg/dL (8.5-10.1) White Blood Count 11.8 x10^3/uL (4.0-11.0) Red Blood Count 3.69 x10^6/uL (3.50-5.40) Mean Corpuscular Volume 88 fL (79-100) Mean Corpuscular Hemoglobin 29 pg (25-35) Red Cell Distribution Width 14.7 % (11.5-14.5) Platelet Count 143 x10^3/uL (140-400) Neutrophils (%) (Auto) 66 % (31-73) Lymphocytes (%) (Auto) 13 % (24-48) Monocytes (%) (Auto) 15 % (0-9) Eosinophils (%) (Auto) 6 % (0-3) Basophils (%) (Auto) 0 % (0-3) Neutrophils # (Auto) 7.8 x10^3uL (1.8-7.7) Lymphocytes # (Auto) 1.5 x10^3/uL (1.0-4.8) Monocytes # (Auto) 1.8 x10^3/uL (0.0-1.1) Eosinophils # (Auto) 0.7 x10^3/uL (0.0-0.7) Basophils # (Auto) 0.0 x10^3/uL (0.0-0.2) Laboratory Tests Test 12/06/18 04:40 12/06/18 04:46 Sodium Level 137 mmol/L (136-145) Potassium Level 4.5 mmol/L (3.5-5.1) Chloride Level 106 mmol/L (98-107) Carbon Dioxide Level 27 mmol/L (21-32) Anion Gap 4 (6-14) Blood Urea Nitrogen 15 mg/dL (7-20) Creatinine 0.9 mg/dL (0.6-1.0) Estimated GFR (Cockcroft-Gault) 61.2 Glucose Level 119 mg/dL (70-99) Calcium Level 8.7 mg/dL (8.5-10.1) White Blood Count 11.8 x10^3/uL (4.0-11.0) Red Blood Count 3.69 x10^6/uL (3.50-5.40) Hemoglobin 10.7 g/dL (12.0-15.5) Hematocrit 32.3 % (36.0-47.0) Mean Corpuscular Volume 88 fL (79-100) Mean Corpuscular Hemoglobin 29 pg (25-35) Mean Corpuscular Hemoglobin Concent 33 g/dL (31-37) Red Cell Distribution Width 14.7 % (11.5-14.5) Platelet Count 143 x10^3/uL (140-400) Neutrophils (%) (Auto) 66 % (31-73) Lymphocytes (%) (Auto) 13 % (24-48) Monocytes (%) (Auto) 15 % (0-9) Eosinophils (%) (Auto) 6 % (0-3) Basophils (%) (Auto) 0 % (0-3) Neutrophils # (Auto) 7.8 x10^3uL (1.8-7.7) Lymphocytes # (Auto) 1.5 x10^3/uL (1.0-4.8) Monocytes # (Auto) 1.8 x10^3/uL (0.0-1.1) Eosinophils # (Auto) 0.7 x10^3/uL (0.0-0.7) Basophils # (Auto) 0.0 x10^3/uL (0.0-0.2) Medications Current Medications Fentanyl Citrate (Fentanyl 2ml Vial) 50 mcg 1X ONCE IM Last administered on 12/03/18at 17:28; Start 12/03/18 at 16:00; Stop 12/03/18 at 16:02; Status DC Ondansetron HCl (Zofran) 4 mg PRN Q8HRS PRN IV NAUSEA/VOMITING Last administered on 12/03/18at 19:18; Start 12/03/18 at 18:45; Stop 12/04/18 at 18:44; Status DC Morphine Sulfate (Morphine Sulfate) 4 mg PRN Q2HR PRN IV PAIN Last administered on 12/04/18at 13:20; Start 12/03/18 at 18:45; Stop 12/04/18 at 18:44; Status DC Acetaminophen (Tylenol) 650 mg PRN Q4HRS PRN PO FEVER Last administered on 12/04/18at 08:38; Start 12/03/18 at 18:45; Stop 12/04/18 at 18:44; Status DC Oxycodone/ Acetaminophen (Percocet 5/325) 1 tab PRN Q4HRS PRN PO PAIN MILD TO MOD 1ST CHOICE; Start 12/03/18 at 20:00 Cefazolin Sodium/ Dextrose 50 ml @ 100 mls/hr 1X PREOP PRN IV comm; Start 12/03/18 at 20:00; Stop 12/05/18 at 12:47; Status DC Oxycodone/ Acetaminophen (Percocet 5/325) 2 tab PRN Q4HRS PRN PO PAIN SEVERE 1ST CHOICE Last administered on 12/06/18at 06:17; Start 12/03/18 at 20:30 Ketorolac Tromethamine (Toradol 15mg Vial) 15 mg DAILY PRN IV pain Last administered on 12/04/18at 21:46; Start 12/03/18 at 20:30; Stop 12/08/18 at 20:29 Sodium Chloride 1,000 ml @ 100 mls/hr 1X ONCE IV Last administered on 12/03/18at 21:22; Start 12/03/18 at 20:45; Stop 12/04/18 at 06:44; Status DC Calcium Carbonate/ Glycine (Oscal) 500 mg QHS PO Last administered on 12/05/18at 20:54; Start 12/04/18 at 21:00 Citalopram Hydrobromide (CeleXA) 40 mg DAILY PO Last administered on 12/06/18at 11:12; Start 12/04/18 at 09:00 Donepezil HCl (Aricept) 10 mg DAILY PO Last administered on 12/06/18at 11:15; Start 12/04/18 at 10:00 Montelukast Sodium (Singulair) 10 mg QHS PO Last administered on 12/05/18at 20:55; Start 12/04/18 at 21:00 Fish Oil (Fish Oil) 1,000 mg BID PO Last administered on 12/06/18at 11:16; Start 12/04/18 at 09:00 Risperidone (RisperDAL) 1 mg BID PO Last administered on 12/06/18at 11:12; Start 12/04/18 at 09:00 Fentanyl Citrate (Fentanyl 2ml Vial) 25 mcg PRN Q5MIN PRN IV MILD PAIN; Start 12/04/18 at 10:45; Stop 12/05/18 at 10:44; Status DC Fentanyl Citrate (Fentanyl 2ml Vial) 50 mcg PRN Q5MIN PRN IV MODERATE TO SEVERE PAIN; Start 12/04/18 at 10:45; Stop 12/05/18 at 10:44; Status DC Morphine Sulfate (Morphine Sulfate) 1 mg PRN Q10MIN PRN IV SEVERE PAIN; Start 12/04/18 at 10:45; Stop 12/05/18 at 10:44; Status DC Ringer's Solution 1,000 ml @ 30 mls/hr Q24H IV ; Start 12/04/18 at 10:40; Stop 12/04/18 at 22:39; Status DC Lidocaine HCl (Xylocaine-Mpf 1% 2ml Vial) 2 ml PRN 1X PRN ID PRIOR TO IV START; Start 12/04/18 at 10:45; Stop 12/05/18 at 10:44; Status DC Hydromorphone HCl (Dilaudid) 0.5 mg PRN Q10MIN PRN IV SEV PAIN, Second choice; Start 12/04/18 at 10:45; Stop 12/05/18 at 10:44; Status DC Prochlorperazine Edisylate (Compazine) 5 mg PACU PRN PRN IV NAUSEA, MRX1; Start 12/04/18 at 10:45; Stop 12/05/18 at 10:44; Status DC Rocuronium [place] (Zemuron) 50 mg STK-MED ONCE .ROUTE ; Start 12/04/18 at 16:27; Stop 12/04/18 at 16:28; Status DC Fentanyl Citrate (Fentanyl 2ml Vial) 100 mcg STK-MED ONCE .ROUTE ; Start 12/04/18 at 16:27; Stop 12/04/18 at 16:28; Status DC Neostigmine Methylsulfate (Neostigmine Methylsulfate) 5 mg STK-MED ONCE .ROUTE ; Start 12/04/18 at 16:27; Stop 12/04/18 at 16:28; Status DC Glycopyrrolate (Robinul) 1 mg STK-MED ONCE .ROUTE ; Start 12/04/18 at 16:28; Stop 12/04/18 at 16:29; Status DC Propofol 20 ml @ As Directed STK-MED ONCE IV ; Start 12/04/18 at 16:29; Stop 12/04/18 at 16:30; Status DC Lidocaine HCl (Lidocaine Pf 2% Vial) 5 ml STK-MED ONCE .ROUTE ; Start 12/04/18 at 16:29; Stop 12/04/18 at 16:30; Status DC Propofol 20 ml @ As Directed STK-MED ONCE IV ; Start 12/04/18 at 16:29; Stop 12/04/18 at 16:30; Status DC Propofol 20 ml @ As Directed STK-MED ONCE IV ; Start 12/04/18 at 16:29; Stop 12/04/18 at 16:30; Status DC Ondansetron HCl (Zofran) 4 mg STK-MED ONCE .ROUTE ; Start 12/04/18 at 16:29; Stop 12/04/18 at 16:30; Status DC Cefazolin Sodium/ Dextrose 50 ml @ 100 mls/hr 1X ONCE IV Last administered on 12/04/18at 18:15; Start 12/04/18 at 17:00; Stop 12/04/18 at 17:29; Status DC Morphine Sulfate 5 mg/Ketorolac Tromethamine 30 mg/Ropivacaine 60 ml/Epinephrine HCl 0.5 mg/Sodium Chloride 100 ml @ 100 mls/hr 1X ONCE INT ART ; Start 12/04/18 at 18:00; Stop 12/04/18 at 18:59; Status DC Tranexamic Acid 1000 mg/Sodium Chloride 60 ml @ 60 mls/hr 1X PERIOP ONCE INJ Last administered on 12/04/18at 18:30; Start 12/04/18 at 18:00; Stop 12/04/18 at 18:59; Status DC Tranexamic Acid 1000 mg/Sodium Chloride 60 ml @ 60 mls/hr 1X PERIOP ONCE INJ Last administered on 12/04/18at 20:00; Start 12/04/18 at 19:00; Stop 12/04/18 at 19:59; Status DC Phenylephrine HCl (PHENYLEPHRINE in 0.9% NACL PF) 1 mg STK-MED ONCE IV ; Start 12/04/18 at 18:23; Stop 12/04/18 at 18:24; Status DC Sevoflurane (Ultane) 60 ml STK-MED ONCE IH ; Start 12/04/18 at 18:44; Stop 12/04/18 at 18:45; Status DC Vancomycin HCl (Vancomycin) 1 gm STK-MED ONCE .ROUTE ; Start 12/04/18 at 18:44; Stop 12/04/18 at 19:45; Status DC Tobramycin Sulfate (Tobramycin Powder) 1.2 gm STK-MED ONCE .ROUTE ; Start 12/04/18 at 18:44; Stop 12/04/18 at 19:45; Status DC Tobramycin Sulfate (Tobramycin Powder) 1.2 gm STK-MED ONCE TP Last administered on 12/04/18at 19:52; Start 12/04/18 at 19:52; Stop 12/04/18 at 19:56; Status DC Vancomycin HCl (Vancomycin) 1 gm STK-MED ONCE TP Last administered on 12/04/18at 19:52; Start 12/04/18 at 19:52; Stop 12/04/18 at 19:56; Status DC Oxycodone HCl (Roxicodone) 5 mg PRN Q3HRS PRN PO MODERATE PAIN; Start 12/04/18 at 21:15 Morphine Sulfate (Morphine Sulfate) 2 mg PRN Q1HR PRN IV SEVERE PAIN; Start at 21:15 Fentanyl Citrate (Fentanyl 2ml Vial) 25 mcg PRN Q1HR PRN IV SEVERE PAIN; Start 12/04/18 at 21:15 Multivitamins (Thera M Plus) 1 tab DAILY PO Last administered on 12/06/18at 11:15; Start 12/05/18 at 09:00 Senna/Docusate Sodium (Senna Plus) 1 tab DAILY PO Last administered on 12/06/18 11:14; Start 12/05/18 at 09:00 Polyethylene Glycol (miraLAX PACKET) 17 gm PRN DAILY PRN PO CONSTIPATION 1ST CHOICE; Start 12/04/18 at 21:15 Ferrous Sulfate (Feosol) 325 mg BIDWMEALS PO Last administered on 12/06/18at 11:14; Start 12/05/18 at 08:00 Celecoxib (CeleBREX) 200 mg DAILY PO Last administered on 12/06/18at 11:13; Start 12/05/18 at 09:00 Vitamin D (Vitamin D3) 1,000 unit DAILY PO Last administered on 12/06/18at 11:16; Start 12/05/18 at 09:00 Sodium Chloride 1,000 ml @ 75 mls/hr [id number] IV Last administered on 12/06/18at 00:45; Start 12/04/18 at 21:01 Ondansetron HCl (Zofran) 4 mg PRN Q4HRS PRN IV NAUSEA/VOMITING 1ST CHOICE Last administered on 12/05/18at 11:40; Start 12/04/18 at 21:15 Calcium Carbonate/ Glycine (Tums) 500 mg PRN QID PRN PO INDIGESTION; Start 12/04/18 at 21:15 Magnesium Hydroxide (Milk Of Magnesia) 2,400 mg 1X PRN PRN PO CONSTIPATION; Start 12/05/18 at 06:00; Stop 12/06/18 at 05:59; Status DC Bisacodyl (Dulcolax Supp) 10 mg 1X PRN PRN IN CONSTIPATION; Start 12/05/18 at 16:00; Stop 12/06/18 at 15:59 Acetaminophen/ Hydrocodone Bitart (Lortab 7.5/325) 1 tab PRN Q4HRS PRN PO MODERATE PAIN 2ND CHOICE; Start 12/04/18 at 21:15 Morphine Sulfate (Morphine Sulfate) 4 mg PRN Q2HR PRN IV SEVERE PAIN; Start 12/04/18 at 21:15 Acetaminophen/ Hydrocodone Bitart (Lortab 7.5/325) 2 tab PRN Q4HRS PRN PO SEVERE PAIN 2ND CHOICE Last administered on 12/05/18at 08:05; Start 12/04/18 at 21:15 Dextrose (Dextrose 50%-Water Syringe) 12.5 gm PRN Q15MIN PRN IV SEE COMMENTS; Start 12/04/18 at 21:15 Cefazolin Sodium/ Dextrose 50 ml @ 100 mls/hr Q6H IV Last administered on 12/05/18at 12:18; Start 12/05/18 at 00:00; Stop 12/05/18 at 12:29; Status DC Aspirin (Ecotrin) 325 mg BID PO Last administered on 12/06/18at 11:14; Start 12/05/18 at 09:00 Oxycodone/ Acetaminophen (Percocet 5/325) 1 tab PRN Q4HRS PRN PO MODERATE PAIN; Start 12/04/18 at 21:15; Status Cancel Active Scripts Active Reported Calcium (Calcium Carbonate) 600 Mg Tablet 600 Mg PO HS Fish Oil 1,000 Mg Softgel ([place]-3 Fatty Acids/Fish Oil) 1 Each Capsule 1 Each PO BID Montelukast Sodium Tablet (Montelukast Sodium) 10 Mg Tablet 1 Tab PO DAILY Celexa (Citalopram Hydrobromide) 40 Mg Tablet 1 Tab PO DAILY Risperdal (Risperidone) 1 Mg Tablet 1 Mg PO BID Aricept (Donepezil Hcl) 10 Mg Tablet 1 Tab PO BID Vitals/I & O Vital Sign - Last 24 Hours 12/05/18 12/05/18 12/05/18 12/05/18 15:00 19:20 19:45 23:13 Temp 97.8 97.5 98.2 97.8 97.5 98.2 Pulse 69 72 77 Resp 16 18 18 B/P (MAP) 112/47 (68) 129/54 (79) 121/39 (66) Pulse Ox 96 98 94 O2 Delivery Room Air Nasal Cannula Room Air Nasal Cannula O2 Flow Rate 2.0 2.0 12/06/18 12/06/18 12/06/18 12/06/18 03:08 06:17 07:00 07:20 Temp 98.5 98.5 98.5 98.5 Pulse 87 78 Resp 18 18 B/P (MAP) 122/46 (71) 121/51 (74) Pulse Ox 92 94 94 O2 Delivery Nasal Cannula Nasal Cannula Nasal Cannula Room Air O2 Flow Rate 2.0 2.0 2.0 2.0 Intake and Output 12/05/18 12/05/18 12/06/18 15:00 23:00 07:00 Intake Total 990 ml Output Total 1000 ml 2800 ml Balance -1000 ml -1810 ml SHAHANA FARLEY III DO Dec 06, 2018 11:42
--- NOTE | 2018-12-06 12:09 | PDOC3 ---
[facility]-Discharge Summary Date of Admission: Date of Admission: Dec 03, 2018 Date of Discharge: Date of Discharge: Dec 06, 2018 Admission Diagnosis: Admitting Diagnosis: Hip fracture after fall Discharge Diagnosis: Discharge Diagnosis: Postop day 2ORIF left hip fracture Fall resulting in R subcapital Femoral Neck Fx - POD #2 from R bipolar hip arthroplasty, doing well Chronic bronchitis Anxiety Osteopenia Bipolar Consults: Consults: Orthopedics Procedures: Procedures: ORIF hip fracture Hospital Course: Hospital Course: Patient is a pleasant elderly female who fell in the garage from 1 stair she suffered a hip fracture she was admitted we consult orthopedics she was taken for ORIF Postoperative she has done well we have given her aggressive wound care and physical therapy occupational therapy and pain meds This morning I saw the patient and examined her heart tones were normal her lungs were clear her wounds were clean dry and intact we plan to discharge to retirement Activity: Activity: Resume previous activity Medications: Home Meds Reported Medications Calcium Carbonate (CALCIUM) 600 Mg Tablet, 600 MG PO HS for supplement, TAB 12/04/18 [place]-3 Fatty Acids/Fish Oil (FISH OIL 1,000 MG SOFTGEL) 1 Each Capsule, 1 EACH PO BID for supplement, CAP 12/04/18 Montelukast Sodium (MONTELUKAST SODIUM TABLET) 10 Mg Tablet, 1 TAB PO DAILY for copd, #30 TAB 5 Refills 12/04/18 Citalopram Hydrobromide (CELEXA) 40 Mg Tablet, 1 TAB PO DAILY for anxiety, #30 TAB 1 Refill 12/04/18 Risperidone (RISPERDAL) 1 Mg Tablet, 1 MG PO BID for MOOD STABILIZER, TAB 12/04/18 Donepezil Hcl (ARICEPT) 10 Mg Tablet, 1 TAB PO BID for dementia, #30 TAB 5 Refills 12/04/18 Scheduled Calcium Carbonate (Calcium), 600 MG PO HS, (Reported) Citalopram Hydrobromide (Celexa), 1 TAB PO DAILY, (Reported) Donepezil Hcl (Aricept), 1 TAB PO BID, (Reported) Montelukast Sodium (Montelukast Sodium Tablet), 1 TAB PO DAILY, (Reported) [place]-3 Fatty Acids/Fish Oil (Fish Oil 1,000 Mg Softgel), 1 EACH PO BID, (Reported) Risperidone (Risperdal), 1 MG PO BID, (Reported) Total Time: Total Time: 34 minutes SHAHANA FARLEY III, DO Dec 06, 2018 12:08
--- NOTE | 2018-12-06 12:51 | NUR ---
Pt was discharged to at 1235 in stable condition with all personal belongings. Report called in to Erin PADILLA, packet given to facility transportation personnel, all pertinent information faxed to PP. Pt was transferred via WC and accompanied by and transportation to the main exit where she was driven by WC van to .
--- NOTE | 2018-12-09 11:08 | PATHOLOGY ---
[facility] Accession Number: [id number] . 01 Material submitted: . femur - RIGHT FEMORAL HEAD. Modifiers: right, head . 01 Clinical history: . Rt hip fx . 02 Diagnosis: Segments of femoral head, right bipolar hip: - Focal fragmentation of bony trabeculae and recent intertrabecular hemorrhage consistent with fracture. - Degenerative arthritis. . (JPM:mm; 12/06/2018) [facility]/12/09/2018 . 02 Comment: There is no evidence of malignancy. . (JPM:mm; 12/06/2018) . 02 Electronically signed: . Mitchell Soler MD, Pathologist NPI- [id number] . 01 Gross description: . The specimen is received in formalin, labeled "DeniseAllison nayak, right femoral head" and consists of a fragmented femoral head received in 6 pieces measuring 5.7 x 5.1 x 5.1 cm. The articular surface is lomas-brown and smooth with the opposite aspect irregular, brown, and hemorrhagic consistent with fracture. Sectioning reveals yellow-pink and hemorrhagic cut surfaces. A full-thickness credit and collections representative section (bisected) is submitted in A1-A2 following decalcification. (SDY; 12/05/2018) SYU/SYU . 02 Pathologist provided ICD-10: S72.051A, M16.11 . 02 CPT . 427926, 541283 Specimen Comment: A courtesy copy of this report has been sent to Specimen Comment: [phone], , , . Specimen Comment: Report sent to ,DR MAURER,DR MEADOWS / DR SERRATO Performed at: 01 [facility] [address], [place], [place] [id number] MD Joseph Zamorano MD Phone: [phone] Performed at: 02 [facility] [address], [place] [id number] MD Mitchell Soler MD Phone: [phone]
== END 2018-12-06 12:35 | DRG 470 ==
LOC: ER 15:37 → 4 NORTH 18:31
PROVIDERS: ADMIT Internal Medicine; ATTEND Internal Medicine
PROC: 0SRR019 Replacement of Right Hip Joint, Femoral Surface with Metal Synthetic Substitute, Cemented, Open Approach (ICD-10-PCS; principal; 2018-12-04 17:30)
DX: S72.031A Displaced midcervical fracture of right femur, initial encounter for closed fracture (principal); F31.9 Bipolar disorder, unspecified; F41.9 Anxiety disorder, unspecified; E66.9 Obesity, unspecified; W10.9XXA Fall (on) (from) unspecified stairs and steps, initial encounter; Z96.649 Presence of unspecified artificial hip joint; J42 Unspecified chronic bronchitis; M85.80 Other specified disorders of bone density and structure, unspecified site; F03.90 Unspecified dementia, unspecified severity, without behavioral disturbance, psychotic disturbance, mood disturbance, and anxiety; Z68.31 Body mass index [BMI] 31.0-31.9, adult; Y93.89 Activity, other specified; Y92.89 Other specified places as the place of occurrence of the external cause; Y99.8 Other external cause status
CPT/HCPCS: 36415; 51702; 71045; 73501; 73502; 80048; 80053; 81001; 82306; 82962; 85014; 85018; 85025; 85610; 85730; 86850; 86900; 86901; 87641; 88305; 88311; 96372; 96374; 96375; A7015; C1713; J0696; J1885; J2001; J2270; J2370; J2405; J2704; J2710; J3010; J3260; J3370; J3490; J7030; J7120; 97110; 97530; 97535; 99285-25; A4461

== ENCOUNTER → 2020-09-10 | Outpatient (CLI) | payer MEDICARE, OTHER ==
[~2020-09-10] MED LIST: CALC600T6 PO; CITA40TA12 PO; DONE10TA61 PO; MONT10TA49 PO; OMEG1CAP27 PO; RISP1TAB43 PO
--- NOTE | 2020-09-10 13:46 | RAD ---
Exam performed: Ultrasound evaluation of the aorta. HISTORY: Pulsatile abdominal mass. DATE OF SERVICE: 09/10/2020. COMPARISON: None available TECHNIQUE: Real-time grayscale, color flow, duplex Doppler and spectral analysis of the aorta is perf ormed and images are obtained. Findings and impression: There is extensive atheromatous plaquing involving the aorta throughout. The proximal aorta measures 1.8 cm, mid aorta measures 2.5 cm distal aorta measures 1.7 cm. Normal aortic bifurcation is seen. No evidence of aneurysm identified. Electronically signed by: Teresita Rodríguez MD (09/10/2020 1:44 PM) [id number]
== END ==
LOC: US 07:54
PROVIDERS: ATTEND Internal Medicine Gastroenterology
DX: I71.4 Abdominal aortic aneurysm, without rupture (principal)
CPT/HCPCS: 76770

== ENCOUNTER → 2021-11-21 | Outpatient (CLI) | payer MEDICARE, OTHER ==
[~2021-11-21] MED LIST changes: -CALC600T6 PO; +CALC600T60 PO
--- NOTE | 2021-11-22 12:03 | CARD ---
MR#: [id number] Date of Study: 11/21/2021 Ordering Physician: ROJAS JAMIL, Referring Physician: Nolan HUERTA: Cathy Virgen [facility] APPROVED REPORT EXAM: Two-dimensional and M-mode echocardiogram with Doppler and color Doppler. Other Information Quality : AverageHR: 71bpm Rhythm : NSR INDICATION Syncope 2D DIMENSIONS Left Atrium(2D)3.6 (1.6-4.0cm)IVSd0.7 (0.7-1.1cm) Aortic Root(2D)3.0 (2.0-3.7cm)LVDd4.3 (3.9-5.9cm) LVOT Diameter1.8 (1.8-2.4cm)PWd1.0 (0.7-1.1cm) LVDs2.7 (2.5-4.0cm)FS (%) 37.8 % SV57.4 mlLVEF(%)68.3 (>50%) Aortic Valve AoV Peak Bj.120.4cm/sAoV VTI27.7cm AO Peak GR.5.8mmHgLVOT Peak Bj.112.4cm/s LVOT VTI 25.84cmAO Mean GR.4mmHg KP (VMAX)1.14sa5HEU (VTI)2.50cm2 Mitral Valve MV E Jvihqzuw11.0cm/sMV DECEL [id number] MV A Jdecjhvg83.4cm/sMV [id number] E/A Ratio1.2MVA (PHT)3.30cm2 TDI E/Lateral E'10.1E/Medial E'9.5 Pulmonary Valve PV Peak Yctzuwum12.9cm/sPV Peak Grad.3mmHg Tricuspid Valve TR P. Dehbhvga826fn/sTR Peak Gr.20mmHg Pulmonary Vein S1 Juzgrcvj96.7cm/sD2 Dkwngahu24.8cm/s PVa [id number] LEFT VENTRICLE The left ventricle is normal size. There is normal left ventricular wall thickness. The left ventricu lar systolic function is normal and the ejection fraction is within normal range. EF 55% There is nor mal LV segmental wall motion. Tissue Doppler imaging reveals mild left ventricular diastolic dysfunct ion. No left ventricle thrombus noted on this study. There is no ventricular septal defect visualized . There is no left ventricular aneurysm. There is no mass noted in the left ventricle. RIGHT VENTRICLE The right ventricle is mildly dilated. There is normal right ventricular wall thickness. The right ve ntricular systolic function is normal. ATRIA The left atrium size is normal. The right atrium size is moderately dilated. The atrial septum is ane urysmal. There is no Doppler evidence for an atrial septal defect. AORTIC VALVE The aortic valve is grossly normal but appears calcified. Doppler and Color Flow revealed no signific ant aortic regurgitation. There is no significant aortic valvular stenosis. MITRAL VALVE The mitral valve is normal in structure and function. There is no evidence of mitral valve prolapse. There is no mitral valve stenosis. Doppler and Color-flow revealed mild mitral regurgitation. TRICUSPID VALVE The tricuspid valve is normal in structure and function. Doppler and Color Flow revealed mild to mode rate tricuspid regurgitation. There is no tricuspid valve prolapse or vegetation. There is no tricusp id valve stenosis. PULMONIC VALVE Doppler and Color Flow revealed no pulmonic valvular regurgitation. There is no pulmonic valvular joaquin nosis. GREAT VESSELS The aortic root is normal in size. The ascending aorta is normal in size. The IVC is normal in size a nd collapses >50% with inspiration. PERICARDIAL EFFUSION There is no evidence of significant pericardial effusion. Critical Notification Critical Value: No <Conclusion> The left ventricular systolic function is normal and the ejection fraction is within normal range. EF 55% There is normal LV segmental wall motion. The right ventricle is mildly dilated. The right atrium size is moderately dilated. The atrial septum is aneurysmal. There is no Doppler evidence for an atrial septal defect. Doppler and Color-flow revealed mild mitral regurgitation. Doppler and Color Flow revealed mild to moderate tricuspid regurgitation. RVSP 22 mm Hg. Signed by : Travis Wheatley, Electronically Approved : 11/22/2021 12:02:47
== END ==
LOC: ECHO 10:41
PROVIDERS: ATTEND Internal Medicine Cardiovascular Disease
DX: I08.1 Rheumatic disorders of both mitral and tricuspid valves (principal); R55 Syncope and collapse
CPT/HCPCS: 93306; C8929